=== PATIENT | male | born 1940 | race Caucasian/White ===

== ENCOUNTER 2020-01-22 08:27 | Outpatient (CLI) | payer MEDICARE, BC, SELFPAY ==
--- NOTE | ~2020-01-22 | MR_ITS ---
EXAMINATION: MR lumbar spine wo con EXAM DATE: 01/22/2020 09:45 INDICATION: Bilateral leg numbness, right side worse. TECHNIQUE: Multi-sequential, multiplanar MR images of the lumbar spine were obtained without contrast . Sagittal T1, T2, T2 fat saturation images. Axial T2 weighted images. There is no prior study for comparison. FINDINGS: There is 5 mm anterolisthesis L4 on L5 without spondylolysis. Mild to moderate loss of this disc height, moderate loss at L5-S1 and mild at other lumbar levels. The vertebral bodies are otherw ise aligned. The conus medullaris terminates at the L1/2 level and has normal signal intensity and mo rphology. There are no suspicious marrow signal abnormalities. Paraspinal soft tissue is unremarkabl e. Level by level evaluation: T12-L1: Disc does not extend beyond the endplate margin. Facet arthropathy: Mild. Neural foraminal stenosis: No stenosis. Central canal stenosis: No stenosis. L1-L2: Disc does not extend beyond the endplate margin. Facet arthropathy: Mild to moderate. Neural foraminal stenosis: No stenosis. Central canal stenosis: No stenosis. L2-L3: There is a mild diffuse disc bulge. Facet arthropathy: Mild to moderate. Neural foraminal stenosis: Mild left. Central canal stenosis: Mild. L3-L4: There is a mild to moderate diffuse disc bulge. Facet arthropathy: Mild to moderate. Neural foraminal stenosis: Mild left. Central canal stenosis: Mild. L4-L5: There is a large diffuse disc bulge. Facet arthropathy: Severe . Ligamentum flavum enlargement. Neural foraminal stenosis: Moderate right, mild to moderate left. Central canal stenosis: Severe. L5-S1: There is a moderate diffuse disc bulge. Facet arthropathy: Mild to moderate. Neural foraminal stenosis: Moderate bilateral. Central canal stenosis: Mild to moderate. IMPRESSION: 1. L4-5 grade 1 anterolisthesis, severe central canal stenosis. Reviewed, dictated and finalized at location B.
== END 2020-01-22 08:28 | disposition home or self-care (01) ==
LOC: ANHIMG 08:45
PROVIDERS: PCP Internal Medicine; Visit Provider Internal Medicine
DX: M48.061 Spinal stenosis, lumbar region without neurogenic claudication (principal); M43.16 Spondylolisthesis, lumbar region
CPT/HCPCS: 72148

== ENCOUNTER 2020-07-24 08:03 | Emergency (ER) | payer MEDICARE, BC, SELFPAY ==
--- NOTE | ~2020-07-24 | XR_ITS ---
XR shoulder RT min 2V DATE: 07/24/2020 09:03 INDICATION: Anterior dislocation TECHNIQUE: Neer and AP views COMPARISON: 07/24/2020 right shoulder FINDINGS: There is reduction of the earlier reported anterior dislocation of the right glenohumeral j oint. No fracture is evident. IMPRESSION: Reduction of anterior glenohumeral joint dislocation Reviewed, dictated and finalized at location A. IERS SUPERVISOR
--- NOTE | ~2020-07-24 | XR_ITS ---
EXAMINATION: XR shoulder RT min 2V DATE: 07/24/2020 08:32 INDICATION: Right shoulder pain post fall TECHNIQUE: AP and transscapular Y views of the right shoulder were obtained. COMPARISON: None FINDINGS: Anterior right glenohumeral dislocation. No evident fracture. Mild acromioclavicular osteoarthritis. Prominent heterotopic ossification along the coracoclavicular ligament suggesting sequela of prior hi gher grade acromioclavicular joint separation with coracoclavicular ligament sprain. Cortical irregul arity and subtle lucent tract at the lateral right clavicle suggesting possible surgery potential for ligament reconstruction. Correlate with clinical history. Visualized portions of the lungs are clear . IMPRESSION: 1. Right glenohumeral anterior dislocation. No evident acute fracture. 2. Likely post traumatic/postoperative changes at the right clavicle and coracoid process suggesting prior acromioclavicular joint separation with possible coracoclavicular ligament reconstruction. Balaji elate with clinical/surgical history. Reviewed, dictated and finalized at location A. ICAL LAB ASSISTANT IMPRESSION: 1. Right glenohumeral anterior dislocation. No evident acute fracture. 2. Likely post traumatic/postoperative changes at the right clavicle and coraco id process suggesting prior acromioclavicular joint separation with possible co racoclavicular ligament reconstruction. Correlate with clinical/surgical histor y.
[2020-07-24 08:06] VITALS: BP 163/72; PULSE 64; RESP 16; TEMP 36.8; O2SAT 100
--- NOTE | 2020-07-24 08:12 | ED.UPPEXIN ---
HPI - Extremity Injury (Upper) General Chief Complaint: Extremity Injury, Upper Stated Complaint: RT ARM INJURY Time Seen by Provider: 07/24/20 08:12 Source: patient and family Mode of arrival: ambulatory Limitations: no limitations History of Present Illness HPI narrative: Patient is an 79-year-old male who presents for evaluation of right arm pain following a ground-level fall. Patient states that he entered a gym this morning in order to do some speed walking, his shoes were a bit wet, causing him to slip on the gym floor. Patient states that he landed on his right arm, causing pain at the right shoulder and right upper arm. Patient denies any numbness or weakness in the arm. He denies any difficulty with theatrical agent strength. He denies head trauma, loss of consciousness, neck pain, chest pain, palpitations, shortness of breath or any prodromal symptoms prior to the fall. He denies hip pain or back pain. He has been ambulatory. Patient is right-hand dominant. Related Data Allergies Allergy/AdvReac Type Severity Reaction Status Date / Time No Known Allergies Allergy Unknown Verified 07/24/20 08:11 Review of Systems Review of Systems: Narrative: CONSTITUTIONAL: Denies fever CARDIOVASCULAR: Denies chest pain RESPIRATORY: Denies cough or dyspnea. GASTROINTESTINAL: Denies abdominal pain SKIN: Denies rash MUSCULOSKELETAL: Denies back pain, reports right upper arm and shoulder pain NEUROLOGIC: Denies headache PMFSH Past Medical History Medical History (Updated 07/24/20 @ 09:05 by Keshia Andino MD) Cataract Constipation Osteoarthritis Shoulder dislocation Surgical History Surgical History H/O: vasectomy Social History Social History (Updated 07/24/20 @ 08:19 by Keshia Andino MD) Smoking status: Never smoker Alcohol intake: never Substance use: never Living arrangements: with family Gender identity (if verbalized by the patient): Male Exam Narrative: Exam Narrative: GENERAL: Awake, alert, conversant HEAD: Normocephalic, atraumatic. EYES: PERRLA and EOMI. ENT: Nares clear, no rhinorrhea or epistaxis. Mucous membranes moist. NECK: Supple. No cervical midline tenderness. CHEST: No respiratory distress, breathing even and non labored HEART: Regular rate, sinus rhythm ABDOMEN:Non distended, non tender. Pelvis is stable to anterior and lateral compression. EXTREMITIES: Decreased range of motion at the right shoulder due to pain. Intact sensation over the deltoid. There is squaring off of the shoulder. Full range of motion at the right elbow and right wrist without limitation or pain. No deformity noted overlying the upper extremity. Radial pulse 2+. Intact sensation median, ulnar, radial nerve distribution. SKIN: Warm, dry, no rash. NEURO:No focal deficits. Alert and oriented x3 Course Vital Signs Vital signs: Vital Signs Temperature 36.8 C 07/24/20 08:06 Pulse Rate 64 07/24/20 08:06 Respiratory Rate 16 07/24/20 08:06 Blood Pressure 163/72 H 07/24/20 08:06 Pulse Oximetry 100 07/24/20 08:06 Temperature 36.8 C 07/24/20 08:06 Pulse Rate 64 07/24/20 08:06 Respiratory Rate 16 07/24/20 08:06 Blood Pressure 163/72 H 07/24/20 08:06 Pulse Oximetry 100 07/24/20 08:06 Procedures Joint Aspiration/Injection Joint Asp./Inject. 1: Joint Aspiration Date: 07/24/20 Joint Aspiration Time: 09:00 Time Out Performed: Yes Side of body: right Joint Aspirated: shoulder Ultrasound Guidance: No Skin Prep: Chlorhexidine Local Anesthetic: lidocaine 1% and with epi Amount of anesthesia used (mL): 10 Needle Size Used: 18G Fluid Obtained: none Patient Tolerated Procedure: well and no complications Complications: none Additional Comments: This was done for anesthesia for a closed shoulder reduction Orthopedic Joint Reduction Joint #1:
[2020-07-24] MEDS: oxyCODONE/ACETAMINOPHEN (*CRX) 5-325 MG TABLET 1 TABLET PO (08:24)
[2020-07-24] MEDS: ONDANSETRON HCL ODT 4 MG TABLET PO (08:24)
[2020-07-24] MEDS: fentaNYL CITRATE INJ (*CRX) 100 MCG/2 ML VIAL (08:51)
== END 2020-07-24 09:52 | disposition home or self-care (01) ==
PROVIDERS: Emergency Provider Emergency Medicine; PCP Internal Medicine
DX: S43.004A Unspecified dislocation of right shoulder joint, initial encounter (principal); W01.0XXA Fall on same level from slipping, tripping and stumbling without subsequent striking against object, initial encounter
CPT/HCPCS: 23655; 73030; 96374; 99285; A4565; A9270; J3010

== ENCOUNTER 2023-03-30 08:53 | Emergency (ER) | payer MEDICARE, BC, SELFPAY ==
--- NOTE | 2023-03-30 08:59 | ED.DIZZY ---
HPI - Dizziness General Chief Complaint: Dizziness Stated Complaint: Dizziness,Numbness Lt Arm and Face Time Seen by Provider: 03/30/23 08:58 Source: patient and family Mode of arrival: ambulatory Limitations: no limitations History of Present Illness HPI Narrative: Calixto is an 82-year-old male patient presenting to the clinic today with complaints of intermittent dizziness x3 weeks. States he feels as though he is unsteady on his feet and he may fall down. He reports that this morning around 3:00 a.m. this morning that he developed left arm numbness and tingling as well as left-sided facial numbness and tingling. He reports that this only lasted for a few minutes. He denies any headache, visual changes, chest pain, or shortness of breath. Current symptoms have resolved. Related Data Home Medications Medication Instructions Recorded Confirmed No Home Medications 03/30/23 03/30/23 Allergies Allergy/AdvReac Type Severity Reaction Status Date / Time No Known Allergies Allergy Unknown Verified 03/30/23 10:04 Review of Systems Review of Systems: Pertinent positives per HPI. Patient denies any fever, chills, rash, headache, visual changes, cough, runny nose, sore throat, shortness of breath, chest pain, palpitations, nausea, vomiting, diarrhea, constipation, abdominal pain, or any urinary issues. [facility] Past Medical History Medical History BMI 29.0-29.9,adult Cataract Constipation Dislocation of right shoulder joint Osteoarthritis Shoulder dislocation Surgical History Surgical History H/O elbow surgery 2009 Dr Anen H/O: vasectomy History of back surgery pt notes previous surgery for spinal stenosis History of left knee replacement 2011, Dr. Flor History of right hip replacement 2014, Dr. Anne History of shoulder surgery right AC separation as a youth Social History Social History Smoking status: Never smoker Alcohol intake: never Substance use: never Living arrangements: with family Gender identity (if verbalized by the patient): Male Comments At the time of my signature, I reviewed and agree with the nursing past medical, surgical, social, and family history. There is no relevant family history pertinent to the patient complaint. Exam Narrative: General: Well-developed, well nourished, in no apparent distress Head: Normocephalic, atraumatic Eyes: Pupils equally round and reactive to light bilaterally, EOM intact, sclera and conjunctive clear, no discharge, lids normal Ears: TMs intact and clear, ear canals clear, no drainage, grossly hearing normal. Nose: Nares patent, no discharge, no inflammation, no sinus tenderness. Mouth: Oropharynx without lesions or masses, good dentition, MMM. Tongue midline, even rise and fall of uvula Neck: Supple, trachea midline, no enlargement of anterior or posterior cervical nodes, no thyroid masses or goiter palpable. Cardio: Regular rate and rhythm, s1 and s2 normal, no murmur appreciated. Resp: Clear to auscultation bilaterally anteriorly and posteriorly, no rhonchi, rales, wheezing or rubs Musculoskeletal: No deformity, non-tender to palpation, grossly normal range of motion, muscle strength strong and equal, peripheral pulse strong, no edema, no cyanosis, normal gait and station Neuro: Alert and oriented x4 with normal speech, no focal deficits, cranial nerves I through XII intact, muscle strength 5 out of 5, sensation intact bilaterally, negative Romberg test Course Course Emergency Course: Portions of this record may have been created with voice recognition software. Level of Care: Express Care Visit Vital Signs Vital signs: Vital Signs Temperature 36.3 C L 03/30/23 09:15 Pulse Rate 64 03/30/23 09:15 Respiratory Rate 18 03/30/23 09:15 B
--- NOTE | 2023-03-30 09:14 | ECG_ITS ---
Measurements Intervals [place] Rate: 66 P: 45 [place]: 190 QRS: 21 QRSD: 96 T: 43 QT: 396 QTc: 417 Interpretive Statements SINUS RHYTHM WITH SINUS ARRHYTHMIA NORMAL ECG NO PREVIOUS ECG AVAILABLE FOR COMPARISON Electronically Signed On 03-30-2023 9:33:40 CDT by Carter Martines D.O.
[2023-03-30 09:15] VITALS: BP 118/65; PULSE 64; RESP 18; TEMP 36.3; O2SAT 100
[2023-03-30 09:20] LABS: Glucose Point of Care 86 mg/dl (65-105)
== END 2023-03-30 09:30 | disposition short-term general hospital (02) ==
PROVIDERS: Emergency Provider Nurse Practitioner Family; PCP Internal Medicine
DX: R42 Dizziness and giddiness (principal); R20.0 Anesthesia of skin; R20.2 Paresthesia of skin; M19.90 Unspecified osteoarthritis, unspecified site; Z98.52 Vasectomy status; Z96.652 Presence of left artificial knee joint; Z96.641 Presence of right artificial hip joint
CPT/HCPCS: 82948; 93005; 99213; G0463

== ENCOUNTER 2023-03-30 10:03 | Inpatient (IN) | payer MEDICARE, BC, SELFPAY ==
[2023-03-30] VITALS (23 sets, daily range): BP systolic 110–164; BP diastolic 61–78; PULSE 58–82; RESP 10–20; TEMP 36.7–36.9; O2SAT 95–100; BMI 28.7
--- NOTE | ~2023-03-30 | CT_ITS ---
EXAMINATION: CTA brain carotid DATE: 03/30/2023 14:13 INDICATION: Transient ischemic attack. TECHNIQUE: Computed tomographic angiography (CTA) of the head was performed without and with 100 mL O mnipaque-350 intravenous contrast. CTA of the neck was performed with intravenous contrast. Automated exposure control and iterative reconstruction technique were employed. The dose-length product was 1 719.85 mGy-cm. Maximum intensity projection and volume rendered 3D-reconstructions were created by curtis juarez technologist on a separate workstation. COMPARISON: None. FINDINGS: HEAD CTA: There is no intracranial hemorrhage, acute infarction, or abnormal intracranial mass lesion . The ventricles are normal in size. There are likely changes of ocular lens replacement surgeries. T here is mild mucosal thickening in the paranasal sinuses. There are old fracture deformities of the n gwen bones. The mastoid air cells are normal. Left vertebral artery is dominant. There is total occlu sheila of distal right vertebral artery. There is no significant stenosis of basilar artery or the post erior cerebral arteries. Right P1 posterior cerebral artery segment is absent, a normal variant. The posterior communicating arteries are normal. There is no significant stenosis of the intracranial int ernal carotid arteries or anterior or middle cerebral arteries. Right A1 anterior cerebral artery seg ment is small or absent, a normal variant. Anterior communicating artery is normal. There is no aneur ysm. NECK CTA: There are no pathologically enlarged lymph nodes. There is a 2.6 cm nodule of left thyroid lobe extending into the mediastinum. There is plaque in the proximal internal carotid arteries. Ther e is 0% stenosis of the proximal right internal carotid artery relative to normal distal artery lumen diameter (NASCET criteria). There is 0% stenosis of the proximal left internal carotid artery relati ve to normal distal artery lumen diameter. There is severe cervical and thoracic spondylosis. IMPRESSION: 1. Normal brain parenchyma. 2. 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 3. 0% stenosis of the proximal internal carotid arteries relative to normal distal artery lumen diame ters (NASCET criteria). 4. Thyroid nodule. Consider thyroid ultrasound for risk stratification if clinically indicated given the patient's age. Reviewed, dictated and finalized at location A. IMPRESSION: 1. Normal brain parenchyma. 2. 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 3. 0% stenosis of the proximal internal carotid arteries relative to normal dis maritza artery lumen diameters (NASCET criteria). 4. Thyroid nodule. Consider thyroid ultrasound for risk stratification if clini piotr indicated given the patient's age.
--- NOTE | ~2023-03-30 | XR_ITS ---
EXAMINATION: XR chest 2V DATE: 03/30/2023 11:13 INDICATION: Dizziness and left arm tingling TECHNIQUE: PA and lateral views of the chest are obtained. COMPARISON: None available FINDINGS: The lungs are free of acute opacities. No pleural effusion or pneumothorax. The cardiomedia stinal silhouette is normal. There are bridging osteophytes at multiple levels in the spine, consiste nt with diffuse idiopathic skeletal hyperostosis (DISH). There is advanced osteoarthritis of the shou lder. Bilateral gynecomastia is noted. IMPRESSION: 1. No acute cardiopulmonary abnormality. Reviewed, dictated and finalized at location L.
--- NOTE | ~2023-03-30 | US_ITS ---
EXAMINATION: US thyroid DATE: 03/31/2023 18:54 INDICATION: Left lobe thyroid nodule on CTA. TECHNIQUE: Multiple ultrasound images of the thyroid were obtained. COMPARISON: CTA brain carotid 03/30/2023. FINDINGS: The right thyroid lobe measures 3.3 x 1.5 x 1.2 cm. The left thyroid lobe measures 4.3 x 2.1 x 2.2 c m. The isthmus measures 0.4 cm. There is normal echotexture and echogenicity throughout the thyroid gland. 2.3 cm solid, isoechoic, wider than tall, smoothly marginated left thyroid nodule with no inte rnal echogenicity (TI-RADS grade 3). Globally increased vascular flow is present in the thyroid paren chyma. IMPRESSION: 2.3 cm mildly suspicious left thyroid nodule (TR 3). Consider follow-up thyroid ultrasound in 1 year, depending on the patient's comorbidities and wishes. Reviewed, dictated and finalized at location K.
--- NOTE | ~2023-03-30 | MR_ITS ---
EXAMINATION: MR lumbar spine wo con DATE: 04/01/2023 15:32 INDICATION: Lumbar spinal stenosis. Areflexia. TECHNIQUE: Magnetic resonance imaging (MRI) of the lumbar spine was performed without intravenous con trast. COMPARISON: Lumbar spine MRI 01/22/2020 FINDINGS: There is 5 degrees levocurvature of lumbar spine. There is 5 mm anterolisthesis of L4 on L5 and 3 mm retrolisthesis of L5 on S1. There is mild chronic anterior wedging of T12 vertebral body. T here is mildly decreased disc height at L2-L3, L3-L4, and L4-L5 and moderately decreased disc height at L5-S1. The distal spinal cord signal intensity is normal. The conus medullaris is at L2. The follo wing disc levels are specifically discussed: L1-L2: The disc does not extend beyond the endplate margin. There is moderate bilateral facet joint o steoarthritis. There is no neural foraminal stenosis. There is no central canal stenosis. L2-L3: The disc is bulging. There is severe bilateral facet joint osteoarthritis. There is mild bilat eral neural foraminal stenosis. There is mild central canal stenosis. L3-L4: The disc is bulging. There is mild right and moderate left facet joint osteoarthritis. There i s mild bilateral neural foraminal stenosis. There is mild central canal stenosis. L4-L5: The disc is bulging and has an annular fissure. There is severe bilateral facet joint osteoart hritis. There is mild bilateral neural foraminal stenosis. There is mild central canal stenosis with posterior decompression. L5-S1: The disc is bulging and has an annular fissure. There is severe bilateral facet joint osteoart hritis. There is moderate bilateral neural foraminal stenosis. There is mild central canal stenosis. IMPRESSION: 1. Moderate lumbar spondylosis with interval improvement at L4-L5 status post surgical decompression. Reviewed, dictated and finalized at location E. IMPRESSION: 1. Moderate lumbar spondylosis with interval improvement at L4-L5 status post s urgical decompression.
--- NOTE | ~2023-03-30 | MR_ITS ---
EXAMINATION: MR cervical spine wo con DATE: 04/01/2023 15:32 INDICATION: Upper extremity paresthesias. TECHNIQUE: Magnetic resonance imaging (MRI) of the cervical spine was performed without intravenous c ontrast. Sequences included sagittal T2-weighted FSE, sagittal T2-weighted FS FSE, sagittal T1-weight ed FSE, axial MERGE, and axial T2-weighted FSE. COMPARISON: None FINDINGS: There is 3 degrees levocurvature of cervical spine. There is 2 mm anterolisthesis of C4 on C5. Vertebral body heights are normal. There is mildly decreased disc height at C3-C4 and C4-C5, omar rely decreased disc height at C5-C6, moderately decreased disc height at C6-C7, and mildly decreased disc height at C7-T1. The spinal cord signal intensity is normal. The following disc levels are speci fically discussed: C2-C3: There is a central protrusion. There is mild bilateral uncovertebral joint osteoarthritis. The re is mild right and severe left facet joint osteoarthritis. There is mild left neural foraminal sten osis. There is no central canal stenosis. C3-C4: The disc is bulging. There is severe right and moderate left uncovertebral joint osteoarthriti s. There is mild right and severe left facet joint osteoarthritis. There is moderate right and mild l eft neural foraminal stenosis. There is mild central canal stenosis. C4-C5: The disc is bulging. There is severe right and moderate left uncovertebral joint osteoarthriti s. There is severe right and mild left facet joint osteoarthritis. There is severe right and mild lef t neural foraminal stenosis. There is mild central canal stenosis. C5-C6: The disc is bulging. There is severe bilateral uncovertebral joint osteoarthritis. There is mi ld bilateral facet joint osteoarthritis. There is severe right and moderate left neural foraminal terry nosis. There is mild central canal stenosis with ventral indentation of the spinal cord. C6-C7: The disc is bulging. There is severe bilateral uncovertebral joint osteoarthritis. There is mi ld bilateral facet joint osteoarthritis. There is moderate bilateral neural foraminal stenosis. There is mild central canal stenosis. C7-T1: There is a central extrusion. There is mild bilateral uncovertebral joint osteoarthritis. Ther e is severe bilateral facet joint osteoarthritis. There is mild bilateral neural foraminal stenosis. There is mild central canal stenosis. IMPRESSION: 1. Severe cervical spondylosis. Reviewed, dictated and finalized at location E.
--- NOTE | ~2023-03-30 | CT_ITS ---
EXAMINATION: CTA brain carotid DATE: 03/31/2023 20:03 INDICATION: CODE STROKE TECHNIQUE: Computed tomographic angiography (CTA) of the head and neck was performed without and with 100 mL Omnipaque-350 intravenous contrast. Automated exposure control and iterative reconstruction t echnique were employed. . The dose-length product was 1189.14 mGy-cm. Maximum intensity projection a nd volume rendered 3D-reconstructions were created by the technologist on a separate workstation. COMPARISON: 03/30/2023; CT brain 03/31/2023. FINDINGS: CT BRAIN: No acute large vessel infarct, intracranial hemorrhage, mass, or hydrocephalus. CTA HEAD: No large vessel occlusion, aneurysm, high flow vascular malformation, nidus or extravasation. Unchang ed short segment occlusion of the right V4 segment. Persistent origin of the right posterior ce rebral artery. Hypoplastic/absent right A1 segment. Carotid siphon calcifications without significant stenosis. Symmetric parenchymal enhancement. Patent cerebral veins. CTA NECK: Aortic arch and proximal great vessels: Bovine arch. Right common carotid, carotid bifurcation, and internal carotid artery: Calcified plaque at the bifur cation.There is 0% stenosis of the proximal right internal carotid artery relative to normal distal a rtery lumen diameter (NASCET criteria). Left common carotid, carotid bifurcation, and internal carotid artery: Calcified plaque at the bifurc ation.There is 0% stenosis of the proximal left internal carotid artery relative to normal distal art augusta lumen diameter (NASCET criteria). Vertebral arteries: No significant plaque or stenosis. Left vertebral artery is dominant. Other findings: None. IMPRESSION: No new large vessel occlusion. 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 Otherwise, severe carotid or vertebral stenosis Reviewed, dictated and finalized at location K.
--- NOTE | ~2023-03-30 | CT_ITS ---
EXAMINATION: CT brain wo con DATE: 03/31/2023 19:56 INDICATION: Stroke symptoms . TECHNIQUE: Computed tomography (CT) of the head was performed without intravenous contrast. The mA wa s adjusted according to patient size. Iterative reconstruction technique was employed. The dose-lengt h product was 605.33 mGy-cm. COMPARISON: CTA brain carotid 03/30/2023; MR brain 03/31/2023. FINDINGS: No acute intracranial hemorrhage or extra-axial fluid collection. No hydrocephalus, mass, or herniation. No acute ischemic infarct. Unremarkable dural venous sinus attenuation. No acute osseous abnormality. Mild mucosal thickening in the ethmoid sinuses, the remaining aerated spaces are clear. Mild atrophy and chronic white matter change. Atherosclerotic intracranial calcification. Bilateral l ens replacements. IMPRESSION: No acute intracranial process. Results reported telephonically to Quoc Trinidad RN by Dr. Parsons at 8:01 PM on 03/31/2023. Reviewed, dictated and finalized at location K.
--- NOTE | ~2023-03-30 | MR_ITS ---
EXAMINATION: MR brain/brain stem wo/w con DATE: 03/31/2023 07:06 INDICATION: Transient ischemic attack. Left hemiparesis. Dizziness. TECHNIQUE: Magnetic resonance imaging (MRI) of the brain and brainstem was performed without and with 17 mL MultiHance intravenous contrast. COMPARISON: Head CT 03/30/2023 FINDINGS: There are scattered areas of nonspecific increased T2-weighted signal intensity in the cere bral white matter, which is within normal limits for the patient's age. There is no intracranial hemo rrhage, acute infarction, or abnormal intracranial mass lesion. The ventricles are normal in size. Th ere is mild mucosal thickening in the ethmoid sinuses. There are likely changes of ocular lens replac ement surgeries. The mastoid air cells are normal. IMPRESSION: 1. Normal brain. Reviewed, dictated and finalized at location A. IMPRESSION: 1. Normal brain.
--- NOTE | 2023-03-30 10:27 | ECG_ITS ---
Measurements Intervals [place] Rate: 58 P: 45 [place]: 190 QRS: 28 QRSD: 89 T: 42 QT: 405 QTc: 400 Interpretive Statements SINUS BRADYCARDIA WITH SINUS ARRHYTHMIA BORDERLINE ECG COMPARED TO ECG 03/30/2023 09:16:25 SINUS BRADYCARDIA NOW PRESENT Electronically Signed On 03-30-2023 10:50:55 CDT by Carter Martines D.O.
[2023-03-30 10:52] LABS: Basophils Absolute Auto 0.1 K/mm3 (0.0-0.1); Basophils Percent Auto 0.9 % (0.2-1.2); Eosinophils Absolute Auto 0.2 K/mm3 (0-0.3); Eosinophils Percent Auto 2.2 % (0-4.4); Hemoglobin 13.4 g/dL (14.0-18.0); Immature Granulocyte Absolute 0.01 K/mm3 (0.00-0.031); Immature Granulocyte Percent A 0.1 % (0-0.5); Lymphocytes Absolute Auto 2.34 K/mm3 (0.9-3.2); Lymphocytes Percent Auto 28.6 % (18.3-44.2); Mean Corpuscular HGB Conc 32.7 g/dl (32-36); Mean Corpuscular Hemoglobin 32.5 pg (26-34); Mean Corpuscular Volume 99.5 fl (80-100); Monocytes Absolute Auto 0.7 K/mm3 (0.1-0.6); Neutrophils Absolute Auto 4.9 K/mm3 (1.3-6.7); Neutrophils Percent Auto 59.2 % (45.5-73.1); Nucleated Red Blood Cells Perc 0.4 % (0.0-0.2); Platelet Count Result 241 k/mm3 (150-375); Red Blood Count 4.12 M/mm3 (4.6-6.20); White Blood Count 8.2 K/mm3 (4.5-10.0)
[2023-03-30 10:59] LABS: Alanine Aminotransferase 19 U/L (6-50); Albumin Level 4.2 g/dL (3.5-5.1); Alkaline Phosphatase 62 U/L (38-126); Anion Gap 7 mmol/L (8-16); Aspartate Amino Transferase 30 U/L (17-59); Bilirubin,Total 0.6 mg/dL (0.2-1.3); Blood Urea Nitrogen 18 mg/dL (9-20); Calcium 8.7 mg/dL (8.4-10.2); Carbon Dioxide 31 mmol/L (22-30); Chloride 102 mmol/L (98-107); Estimated CRCL calculation 59 ml/min; Estimated Glomerular Filt Rate > 60; Glucose 78 mg/dL (65-110); Sodium 140 mmol/L (137-145)
[2023-03-30 11:14] LABS: Add Urine Microscopic? NO; Appearance Urine Clear (Clear); Bilirubin Urine Negative (Negative); Blood Urine Negative (Negative); Color Urine Yellow (Yellow); Glucose Urine UA Negative (Negative); Ketones Urine Negative (Negative); Leukocyte Esterase Ur Negative LEU/UL (Negative); Nitrate Urine Negative (Negative); Protein Urine Negative (Negative); Specific Grav Ur 1.007 (1.001-1.035); Urobilinogen Urine 0.2 mg/dL (<2.0); pH Urine 6.5 (5.0-9.0)
--- NOTE | 2023-03-30 13:40 | ED.DIZZY ---
HPI - Dizziness General Chief Complaint: Dizziness Stated Complaint: dizziness x 3 weeks - left arm weakness Time Seen by Provider: 03/30/23 11:58 History of Present Illness HPI Narrative: 82-year-old male presented the ED for evaluation of intermittent dizziness over the course of the last week but acute onset of some left facial and left arm numbness this morning. Patient reports he had just a few minutes of left arm and left facial numbness this morning. Patient denies any weakness denies any speech difficulty denies any facial droop. Patient reports his symptoms were short lasting by the time the patient went to tell his about the symptoms he states that she saw no facial droop and noticed no speech changes. Patient has no prior history of stroke. Patient reports he is very active and walks 1 to 2 miles a day. Related Data Home Medications Medication Instructions Recorded Confirmed No Home Medications 03/30/23 03/30/23 Allergies Allergy/AdvReac Type Severity Reaction Status Date / Time No Known Allergies Allergy Unknown Verified 03/30/23 18:12 Review of Systems Review of Systems: All systems reviewed & are unremarkable except as noted in HPI and below PMFSH Past Medical History Medical History Osteoarthritis Squamous cell carcinoma of forehead Surgical History Surgical History History of back surgery For spinal stenosis. History of elbow surgery (2009) Dr. Anne History of left knee replacement (2010) Dr. Flor History of right hip replacement (2014) Dr. Anne History of shoulder surgery right AC separation as a youth History of squamous cell carcinoma excision Forehead History of vasectomy Status post functional endoscopic sinus surgery Family History Family History Sibling Malignant neoplasm of prostate Sibling Diabetes mellitus Social History Social History Social History: Surrogate medical decision maker: Glenn Ramos, kyle. Code status: Full code. Smoking status: Never smoker Alcohol intake: never Substance use: never Substance use type: does not use Lack of Transportation: No Lack of Food: Never True Current Housing: I Have Housing Concerned About Future Housing: No Difficulty Paying Gas/Electric Bills: No Difficulty Paying for Meds: No Currently Unemployed: No Education: High School Diploma/GED Difficulty w/ Childcare or Family Care: No Living arrangements: with family Additional living arrangements comments: Lives with spouse in [place]. Enjoys playing piano at local nursing homes. Walks 1 to 2 miles most days of the week. Additional occupation/education comments: Retired from [employer]. Spiritual care concerns: No Exam Narrative: APPEARANCE: Well appearing, no pain, no distress, well-nourished. HEAD: normocephalic, atraumatic. EYES: PERRLA/EOMI, conjunctivae clear. NOSE: Normal no drainage EARS:TMS clear with good light reflex. THROAT: Pharynx clear, no exudate. NECK: Supple. No adenopathy, no masses. RESPIRATORY: Airway patent, respirations nonlabored. Clear to auscultation bilaterally, no rales, rhonchi, wheezing. CARDIOVASCULAR: Regular rate and rhythm without murmurs rubs or gallops. ABDOMINAL: Soft, nontender, nondistended, normal bowel sounds MUSCULOSKELETAL: Moves all extremities. Strength/ROM intact, No edema, No calf tenderness. NEURO: Alert. Cranial nerves II through XII intact. SKIN: Warm, dry. Normal Color Course Course Emergency Course: 82-year-old male presented the ED for evaluation of left arm and left facial numbness that was short lasting. 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 Discussed the kobe
[2023-03-30 13:43] LABS: INR 0.9
[2023-03-30 13:45] LABS: Partial Thromboplastin Time 28.6 SECONDS (22.3-36.8)
--- NOTE | 2023-03-30 15:37 | PC.NURSE ---
Ambulatory to restroom with steady gait.
[2023-03-30] MEDS: ASPIRIN 81 MG CHEWABLE TABLET 324 MG PO (15:56)
--- NOTE | 2023-03-30 17:03 | PM.IMHP ---
H&P: HPI History of Present Illness Date/Time: 03/30/23 16:25 Chief Complaint: Dizziness and numbness in the left face and arm. Narrative: This is a very pleasant and remarkably healthy 82-year-old male who presented to the emergency department via private vehicle from home for evaluation of dizziness and numbness in the left face and arm. The patient provides the following history. He typically gets up at about 03:00 and he goes to the local [facility] where he walks 1 to 2 miles most days of the week. Upon waking he noticed that the left side of his lower face, left arm, and left 4th and 5th fingers were numb. The tingling in the arm resolved within minutes and the left facial numbness resolve shortly thereafter. He felt good enough to go to the but when he was up walking he reports that it felt as though the room was spinning so he cut his walk short after about 20 minutes and went home. Later in the morning he felt good enough to go to [facility] to meet up with his buddies. There he told a story of the symptoms he had this morning and he was encouraged to come in for evaluation. He has no symptoms at this time and has not had recurrence of his symptoms since this morning. He denies headache, visual changes, facial droop, difficulties speaking and swallowing, and focal weakness. He has never had similar symptoms. No chest pain, palpitations, or sensations of racing heart. Blood pressure has been as high as 164/74 in the emergency department which he states is unusual for him. He is in a sinus bradycardia. 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 ED physician spoke with the stroke team at [facility] and their interventional team who did not feel that this was something they would intervene upon. He is being admitted in this setting for close monitoring, MRI, and neurology consultation. At the time my evaluation he is resting comfortably and he has no complaints. Review of Systems Review of Systems: Twelve systems were reviewed and are negative except for as per HPI. ON LICENSE OF [facility] Past Medical History Medical History Osteoarthritis Squamous cell carcinoma of forehead Surgical History Surgical History History of back surgery For spinal stenosis. History of elbow surgery (2009) Dr. Anne History of left knee replacement (2010) Dr. Flor History of right hip replacement (2014) Dr. Anne History of shoulder surgery right AC separation as a youth History of squamous cell carcinoma excision Forehead History of vasectomy Status post functional endoscopic sinus surgery Family History Family History Sibling Malignant neoplasm of prostate Sibling Diabetes mellitus Social History Social History Social History: Surrogate medical decision maker: Glenn Ramos, kyle. Code status: Full code. Smoking status: Never smoker Alcohol intake: never Substance use: never Substance use type: does not use Lack of Transportation: No Lack of Food: Never True Current Housing: I Have Housing Concerned About Future Housing: No Difficulty Paying Gas/Electric Bills: No Difficulty Paying for Meds: No Currently Unemployed: No Education: High School Diploma/GED Difficulty w/ Childcare or Family Care: No Living arrangements: with family Additional living arrangements comments: Lives with spouse in [place]. Enjoys playing piano at local nursing homes. Walks 1 to 2 miles most days of the week. Additional occupation/education comments: Retired from [employer]. Spiritual care concerns: No Meds Home Medications and Allergies Home Medications Medic
--- NOTE | 2023-03-30 18:00 | ADMGEN ---
This patient, Calixto Ramos, was admitted to Medical Room 251-01. Patient/family oriented to hospital policies and general routines including ID bracelet, bed and alarms, visiting hours, pain management, procedures, bathroom and other care routines, personal items, smoking policy, room service/diet, and visiting hours. Information on how to activate the Rapid Response Team has been discussed. Patient/Family are encouraged to report perceived risks to care and to ask questions if they do not understand what they are told or what they should do.
[2023-03-31] VITALS (11 sets, daily range): BP systolic 107–133; BP diastolic 58–64; PULSE 56–71; RESP 16–18; TEMP 36.4–36.6; O2SAT 97–98
--- NOTE | 2023-03-31 | ECHO_ITS ---
Patient Info Name: Calixto Ramos Age: 82 years : 1940 Gender: Male Ht: 68 in Wt: 188 lbs BSA: 2.04 m2 HR: 61 bpm BP: 114 / 60 mmHg Heart Rhythm: Sinus Rhythm Technical Quality: Good Exam Date: 03/31/2023 12:59 PM Exam Location: [facility] Pulmonary Exam Room: [facility] Patient Status: Inpatient Admit Date: 03/30/2023 Staff Ordering Physician: Sara Ramirez DO [employer] Instructor: Hanna Reynaga RDCS Attending Provider: Israel Jules MD Referring Physician: James CARNEY; Exam Type: CA echo dop bubble study w con Study Info Indications - SOB Complete two-dimentional, color flow and Doppler transthoracic echocardiogram is performed with agitated saline and with contrast to opacify the left ventricle and to improve the delineation of the left ventricle endocardial borders. Contrast/Agitated Saline Contrast/Ag. Saline: Definity Amount: 2.00 ml Administered By: Hanna Reynaga [facility] Existing IV Access: Yes IV Access Condition: patent with no signs of infiltration Summary 1. Technically difficult study with limited views. Definity echo contrast administered. 2. Left ventricular chamber dimension is normal. 3. Left ventricular systolic function is normal, estimated at 60-65%. 4. There is mildly increased left ventricular wall thickness. 5. The left ventricular diastolic function is grade I diastolic dysfunction. 6. Right atrial chamber dimension is mildly enlarged. 7. There is no aortic valve stenosis. 8. There is no aortic valve regurgitation. 9. There is no mitral valve regurgitation. 10. There is mild tricuspid valve regurgitation. 11. Mild pulmonary hypertension, estimated pulmonary arterial systolic pressure is 37 mmHg. 12. No evidence for [id number] shunt at the interatrial level with injection of agitated saline with and without Valsalva. Recommendations * Consider JEANNIE if clinically indicated. Left Ventricle Left ventricular chamber dimension is normal. Left ventricular systolic function is normal, estimated at 60-65%. There is mildly increased left ventricular wall thickness. The left ventricular diastolic function is grade I diastolic dysfunction. Technically difficult study with limited views. Definity echo contrast administered. Right Ventricle Right ventricular chamber dimension is normal. Right ventricular systolic function is normal. Left Atria Left atrial chamber dimension is normal. Right Atria Right atrial chamber dimension is mildly enlarged. Atrial Septum No evidence for [id number] shunt at the interatrial level with injection of agitated saline with and without Valsalva. Aortic Valve The aortic valve is trileaflet. There is no aortic valve stenosis. There is no aortic valve regurgitation. There is mild aortic valve calcification. Pulmonic Valve The pulmonic valve is not well visualized. There is trace pulmonic regurgitation. Mitral Valve The mitral valve has normal leaflets. There is no mitral valve regurgitation. The mitral valve annulus is mildly calcified. Tricuspid Valve The tricuspid valve leaflets are normal. There is mild tricuspid valve regurgitation. Mild pulmonary hypertension, estimated pulmonary arterial systolic pressure is 37 mmHg. Pericardium/Pleural The pericardium appears normal. There is small pericardial effusion. Aorta The aortic root size at the sinus of Valsalva is normal. There is mild aortic atherosclerosis. Left Ventricular Outflow Tract
[2023-03-31 05:53] LABS: Cholesterol 171 mg/dL (0-200); HDL Direct 48 mg/dL; Triglycerides 62 mg/dL (<150)
[2023-03-31 06:11] LABS: LDL Cholesterol Direct 96 mg/dL
[2023-03-31] MEDS: ASPIRIN 81 MG CHEWABLE TABLET PO (08:22)
--- NOTE | 2023-03-31 09:41 | PM.IMPN ---
Progress Note: A&P Assessment and Plan (1) Numbness and tingling of left side of face: Code(s): R20.0 - Anesthesia of skin; R20.2 - Paresthesia of skin Status: Inactive Assessment and Plan: Unsure of etiology, could be cervical neuropathy vs TIA vs ? Neuro c/s pending MRI, echo ordered (2) Left arm numbness: Code(s): R20.0 - Anesthesia of skin Status: Inactive (3) Occlusion of right vertebral artery: Code(s): I65.01 - Occlusion and stenosis of right vertebral artery Status: Acute Assessment and Plan: Start daily baby aspirin, lipitor 10 mg Check FLP, a1c (4) Left thyroid nodule: Code(s): E04.1 - Nontoxic single thyroid nodule Status: Acute Assessment and Plan: Check thyroid US, TSH, T4, T3 Plan DVT prophylaxis with SCDs GI prophylaxis not indicated Code status full code The patient presented to the emergency department for evaluation of left facial numbness and left arm numbness as detailed in HPI. His symptoms lasted less than 30 minutes before resolving and they have not returned. Labs, imaging, EKG, and all reports were personally reviewed. CTA of the head and neck showed normal brain parenchyma with 0% stenosis of the proximal internal carotid arteries but did note total occlusion of the distal right vertebral artery. Interventional stroke team at [facility] was consulted by the ED physician and they indicated this would not be something they would intervene upon and they recommended admission to [facility] for stroke workup. Dr. Couch was consulted and her input is appreciated. He will be monitored on telemetry and an echocardiogram has been ordered for a.m.. Continue neurologic checks q.4 hours. The paresthesias of the left upper extremity could be positional or related to pinched nerve however that would not explain the numbness of the face. Regarding the left thyroid nodule, he does not have any pain at this site this can be worked up as an outpatient. His vital signs have been stable. Labs were reviewed and they are stable. He has been started on a baby aspirin. Check lipids in a.m. Subjective Date/time seen: 03/31/23 09:41 Interval history: 82-year-old male with history of osteoarthritis, forehead SCC p/w dizziness, numbness left face/arm and tingling being worked up for possible TIA vs cervicogenic neuropathy. No overnight events noted. No chest pain or shortness of breath. No nausea, vomiting or diarrhea. No fevers or chills. Symptoms unchanged. Review of Systems Review of Systems: 12 point review of systems was assessed and was negative except as noted in the HPI Exam Narrative: General: No acute distress, alert and oriented per baseline HEENT: Atraumatic, normocephalic, mucous membranes moist CV: Regular rate and rhythm, S1, S2 Lungs: Clear to auscultation bilaterally, no rales or crackles noted, no wheezes, good air entry Abdomen: Soft, nontender, nondistended Extremities: Normal to inspection Skin: No rashes noted, no lesions or wounds seen Psych: Euthymic, normal affect Objective Data Vital Signs Vital Signs: Vital Signs - 24 hr 03/30/23 10:22 03/30/23 11:26 03/30/23 12:07 Temperature 98.4 F Pulse Rate 58 L 66 59 L Respiratory Rate 16 16 Blood Pressure 133/62 164/74 H Pulse Oximetry 100 100 Oxygen Delivery 03/30/23 11:26 03/30/23 11:34 03/30/23 11:45 Temperature Pulse Rate 67 59 L 59 L Respiratory Rate 15 12 10 L Blood Pressure Pulse Oximetry 100 100 100 Oxygen Delivery 03/30/23 11:46 03/30/23 12:00 03/30/23 12:15 Temperature Pulse Rate 60 59 L 59 L Respiratory Rate 13 14 14 Blood Pressure 144/74 H Pulse Oximetry 100 100 99 Oxygen Delivery 03/30/23 12:16 03/30/23 12:30 03/30/23 12:31 Temperature Pulse Rate 59 L 59 L 61 Respiratory Rate 15 13 11 L Blood Pressure 138/77 150/74 H Pulse Oximetry 99 99 98 Oxygen Del
[2023-03-31 10:45] LABS: Basophils Percent Auto 0.6 % (0.2-1.2); Eosinophils Absolute Auto 0.2 K/mm3 (0-0.3); Eosinophils Percent Auto 3.7 % (0-4.4); Hematocrit 40.3 % (42.0-52.0); Hemoglobin 13.2 g/dL (14.0-18.0); Immature Granulocyte Absolute 0.02 K/mm3 (0.00-0.031); Immature Granulocyte Percent A 0.3 % (0-0.5); Lymphocytes Absolute Auto 2.04 K/mm3 (0.9-3.2); Lymphocytes Percent Auto 32.5 % (18.3-44.2); Mean Corpuscular HGB Conc 32.8 g/dl (32-36); Mean Corpuscular Hemoglobin 32.6 pg (26-34); Mean Corpuscular Volume 99.5 fl (80-100); Mean Platelet Volume 10.2 fl (7.4-10.4); Monocytes Absolute Auto 0.7 K/mm3 (0.1-0.6); Monocytes Percent Auto 10.5 % (2.6-8.5); Neutrophils Absolute Auto 3.3 K/mm3 (1.3-6.7); Neutrophils Percent Auto 52.4 % (45.5-73.1); Platelet Count Result 217 k/mm3 (150-375); Red Blood Count 4.05 M/mm3 (4.6-6.20); Red Cell Distribution Width 12.9 % (11.5-14.5); White Blood Count 6.3 K/mm3 (4.5-10.0)
[2023-03-31 10:57] LABS: Alanine Aminotransferase 18 U/L (6-50); Albumin Level 3.9 g/dL (3.5-5.1); Alkaline Phosphatase 55 U/L (38-126); Anion Gap 7 mmol/L (8-16); Aspartate Amino Transferase 33 U/L (17-59); Bilirubin,Total 0.6 mg/dL (0.2-1.3); Blood Urea Nitrogen 22 mg/dL (9-20); CRP 0.7 mg/dL (<1.0); Calcium 8.6 mg/dL (8.4-10.2); Carbon Dioxide 28 mmol/L (22-30); Chloride 103 mmol/L (98-107); Estimated CRCL calculation 59 ml/min; Estimated Glomerular Filt Rate > 60; Glucose 82 mg/dL (65-110); Potassium 4.3 mmol/L (3.4-5.0); Sodium 138 mmol/L (137-145)
[2023-03-31 11:19] LABS: Hemoglobin A1C 5.8 % (<5.7); Procalcitonin < 0.0 ng/mL
--- NOTE | 2023-03-31 11:25 | WPDNEURCNPN ---
Assessment and Plan Assessment and plan (1) Brain TIA: Code(s): G45.9 - Transient cerebral ischemic attack, unspecified Status: Acute (2) Left thyroid nodule: Code(s): E04.1 - Nontoxic single thyroid nodule Status: Acute (3) Occlusion of right vertebral artery: Code(s): I65.01 - Occlusion and stenosis of right vertebral artery Status: Acute (4) Orthostatic dizziness: Code(s): R42 - Dizziness and giddiness Status: Acute Plan 1. Right vertebral artery occlusion. stroke team was consulted at [facility] at the time of visit to the ER no further intervention was suggested. 2 complaints of orthostatic dizziness only lasting for few minutes with change in the position from sitting to standing could be related to underlying mild neuropathy with absent deep tendon reflexes nerve conduction studies can be done as an outpatient and blood pressure can be monitored in the hospital document these orthostatic hypertension3 incidental finding of left thyroid nodule which is being investigated. routine blood studies are completely normal except mild anemia, brain MRI is negative, MRI of the lumbar spine in 2020 has documented L4-5 anterolisthesis with severe central canal stenosis, could it be related to the areflexia in the lower extremities, patient does not have any specific complaints of back pain at this stage but MRI can be repeated to evaluate the spinal stenosis, can be continued on only aspirin 81 mg daily. will benefit from routine follow-up for the possibility of early dementia at this stage routine blood studies can be obtained Consult date: 03/31/23 HPI: Calixto Ramos is a 82 year old male Admitted to the hospital through the emergency room with the complaints of intermittent dizziness over the last week but in addition to the new complaint of left facial and left upper extremity numbness since morning which lasted only for few minutes without any associated weakness or speech difficulties patient has no previous history of stroke or TIA and generally he is very active and walks 1 to 2 miles per day, he is not taking any medications, he is not allergic to any medications, he does have ongoing history of osteoarthritis with history of spinal stenosis resulting in the back surgery also history of elbow surgery and left knee surgery also right hip replacement in addition to the slight shoulder surgery as well, he does not smoke does not drink, initial evaluation in the emergency room revealed him to have normal vital signs, normal routine blood studies, negative x-ray of the chest, head and neck CT revealed total occlusion of the distal right vertebral artery with 0% stenosis of proximal internal carotid and incidental finding of thyroid nodule, generally he is very active PMF Past Medical History Medical History Osteoarthritis Squamous cell carcinoma of forehead Surgical History Surgical History History of back surgery For spinal stenosis. History of elbow surgery (2009) Dr. Anne History of left knee replacement (2010) Dr. Flor History of right hip replacement (2014) Dr. Anne History of shoulder surgery right AC separation as a youth History of squamous cell carcinoma excision Forehead History of vasectomy Status post functional endoscopic sinus surgery Family History Family History Sibling Malignant neoplasm of prostate Sibling Diabetes mellitus Social History Social History Social History: Surrogate medical decision maker: Glenn Ramos, son. Code status: Full code. Smoking status: Never smoker Alcohol intake: never Substance use: never Substance use type: does not use Lack of Transportation: No Lack of Food: Never True Current Housing:
[2023-03-31] MEDS: PERFLUTREN LIPID MICROSPHERES 1.5 ML VIAL DILUTED TO 10 ML TOTAL VOLUME IV PUSH (13:30)
[2023-03-31 14:22] LABS: Folic Acid 13.7 ng/mL (2.76->20)
--- NOTE | 2023-03-31 14:39 | IVDEFINITY ---
Prior to administration of IV Definity the patient was educated on the risks and benefits of the imaging enhancing agent including potential adverse side effects. The patient verbalized understanding. Allergies were verified. No exclusion criteria were identified and at least one of the following inclusion criteria were met: 1) physician request, 2) patient technically difficult to image (per the [place] [employer] guidelines of two or more segments not discernable within the apical view), or 3) questionable left ventricular function. ?
[2023-03-31] MEDS: ACETAMINOPHEN 325 MG TABLET 650 MG PO (16:32)
[2023-03-31] MEDS: diphenhydrAMINE HCl INJ 50 MG/ML VIAL 25 MG IV PUSH (16:33)
[2023-03-31] MEDS: METOCLOPRAMIDE HCL INJ 10 MG/2 ML VIAL IV PUSH (16:34)
--- NOTE | 2023-03-31 16:38 | PC.NURSE ---
Patient c/o left arm numbness from fingertips to upper arm and left facial numbness. Dr Pope notified, new orders received.
[2023-03-31] MEDS: CLOPIDOGREL BISULFATE 75 MG TABLET PO (16:50)
[2023-04-01] VITALS (10 sets, daily range): BP systolic 108–124; BP diastolic 63–87; PULSE 59–87; RESP 16–20; TEMP 36.5–36.9; O2SAT 97–100
--- NOTE | 2023-04-01 01:24 | P.PNCROSS_ITS ---
Event Note Event Note Event Note: Call from RN for worsening/new L sided weakness. Requesting NIHSS - per Brandi y, if + then repeat Head CT. Initial NIHSS 1a: Level of Consciousness -0 1b: LOC Questions -0 1c:?LOC Tasks -0 2:?Best Gaze -0 3:?Visual?Light -0 4: Facial Palsy?-0 5a: Motor Arm?R -0 5b: Motor Arm L -1, slight drift 6a:?Motor Leg R -0 6a:?Motor Leg L -1, dip w/return to baseline 7: Limb Ataxia -2 trace ataxia on L w/heel-[place]ob[place] and finger-nose 8: Sensation - 1, decreased on L 9:?Language/Aphasia -0 10:?Dysarthria?-1, altered per patient and 11: Extinction and Inattention -0 Total: 6 Due to exam, Code Stroke called. Onset of symptoms 1630 per RN. Repeat Head CT negative for abnormalities. IMPRESSION: No new large vessel occlusion. 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 Otherwise, no severe carotid or vertebral stenosis.
--- NOTE | 2023-04-01 01:34 | PC.NURSE ---
Code stroke called at 1930 following assessment by provider, NIRMAL Sultana. Pt sent for stat head CT after secondary assessment by rapid response team. All numbness and weakness resolved when pt returned from CT, pt still exhibits very mild speech delay and some difficulty word finding. Pt states feeling great at time of assessment.
--- NOTE | 2023-04-01 08:38 | PM.IMPN ---
Progress Note: A&P Assessment and Plan (1) Numbness and tingling of left side of face: Code(s): R20.0 - Anesthesia of skin; R20.2 - Paresthesia of skin Status: Inactive Assessment and Plan: Unsure of etiology, could be cervical neuropathy vs TIA vs ? Neuro c/s unsure of etiology, check MRI cervical + lumbar spine MRI, echo wnl (2) Left arm numbness: Code(s): R20.0 - Anesthesia of skin Status: Inactive (3) Occlusion of right vertebral artery: Code(s): I65.01 - Occlusion and stenosis of right vertebral artery Status: Acute Assessment and Plan: Start daily baby aspirin, lipitor 10 mg (4) Left thyroid nodule: Code(s): E04.1 - Nontoxic single thyroid nodule Status: Acute Assessment and Plan: Check thyroid US, recheck in 1 year Plan DVT prophylaxis with SCDs GI prophylaxis not indicated Code status full code Subjective Date/time seen: 04/01/23 08:38 Interval history: 82-year-old male with history of osteoarthritis, forehead SCC p/w dizziness, numbness left face/arm and tingling being worked up for possible TIA vs cervicogenic neuropathy. Had an episode last night that was very concerning for patient and family. Had left face, arm and leg numbness and tingling with some weakness and change to his speech, completely resolved at this point. No chest pain or shortness of breath. No nausea, vomiting or diarrhea. No fevers or chills. Symptoms unchanged. Review of Systems Review of Systems: 12 point review of systems was assessed and was negative except as noted in the HPI Exam Narrative: General: No acute distress, alert and oriented per baseline HEENT: Atraumatic, normocephalic, mucous membranes moist CV: Regular rate and rhythm, S1, S2 Lungs: Clear to auscultation bilaterally, no rales or crackles noted, no wheezes, good air entry Abdomen: Soft, nontender, nondistended Extremities: Normal to inspection Skin: No rashes noted, no lesions or wounds seen Psych: Euthymic, normal affect Neuro: Cranial nerves 2-12 grossly intact, strength +5/5 upper and lower extremities bilaterally Objective Data Vital Signs Vital Signs: Vital Signs - 24 hr 03/31/23 12:00 03/31/23 14:00 03/31/23 15:52 Temperature 97.9 F Pulse Rate 58 L 61 Respiratory Rate 16 Blood Pressure 107/64 129/58 L Pulse Oximetry 97 Oxygen Delivery 03/31/23 16:00 03/31/23 19:46 03/31/23 20:29 Temperature 97.9 F 97.7 F Pulse Rate 66 66 67 Respiratory Rate 16 18 Blood Pressure 129/58 L 133/64 Pulse Oximetry 97 98 Oxygen Delivery Room Air 04/01/23 04:56 03/31/23 20:00 04/01/23 00:00 Temperature 98.2 F Pulse Rate 62 71 66 Respiratory Rate 17 Blood Pressure 123/63 Pulse Oximetry 99 Oxygen Delivery 04/01/23 04:00 04/01/23 08:06 Temperature Pulse Rate 60 Respiratory Rate Blood Pressure Pulse Oximetry 97 Oxygen Delivery Room Air Intake/Output Intake/Output: Intake & Output 03/29/23 03/30/23 03/31/23 04/01/23 23:59 23:59 23:59 23:59 Intake Total 120 1130 Balance 120 1130 Meds/Results Medications: Active Medications Generic Name Dose Route Start Last Admin Trade Name Freq PRN Reason Stop Dose Admin Acetaminophen 650 mg 03/30/23 23:00 Acetaminophen 325 Mg Tablet PO Q6H PRN Mild Pain (1-3) or Fever Aspirin 81 mg 03/31/23 08:00 03/31/23 08:22 Aspirin 81 Mg Chewable Tablet PO 81 mg DAILY@0800 [facility] Administration Atorvastatin Calcium 5 mg 04/01/23 09:00 Atorvastatin 5 Mg Tablet PO DAILY [facility] Clopidogrel Bisulfate 75 mg 03/31/23 16:40 03/31/23 16:50 Clopidogrel Bisulfate 75 Mg Tablet PO 75 mg QAM DANNY Administration Perflutren Lipid Microsphere 0 ml 03/31/23 11:02 Perflutren Lipid Microspheres 1.5 Ml Vial Diluted To 10 Ml Total Volume IV PUSH 04/03/23 11:03 ONCE PRN adequate visualization Protocol
[2023-04-01] MEDS: ATORVASTATIN 5 MG TABLET PO (09:08)
[2023-04-01] MEDS: CLOPIDOGREL BISULFATE 75 MG TABLET PO (09:08)
[2023-04-01] MEDS: ASPIRIN 81 MG CHEWABLE TABLET PO (09:08)
--- NOTE | 2023-04-01 10:11 | WPDNEUROLOGY ---
Neurology EEG Report General Information Date of Study: 04/01/23 TEST EEG DIAGNOSIS TIA CONDITION OF RECORDING awake drowsy and sleep EEG NUMBER [id number] CLINICAL HISTORY patient had several episodes of left-sided numbness and slurring of speech by the time the EEG was done he was fine EEG DESCRIPTION basic resting occipital frequency consists of large amount of well-organized low to medium voltage 9 to 11 hertz per 2nd alpha admixed with low-voltage 15 to 18 hertz per 2nd beta. During drowsiness low-voltage beta activity seen diffusely admixed with waxing and waning posterior alpha rhythm. Bilateral symmetrical sleep activity seen during sleep. Hyperventilation not done. Photic stimulation not done. Non paroxysmal. Nonfocal. Nonlateralizing. IMPRESSION Normal record without evidence of any paroxysmal discharge clinical correlation recommended. This tracing is not compatible with seizure disorder
--- NOTE | 2023-04-01 15:08 | PC.NURSE ---
On 04/01/23, the student, [Tony Lopez], provided care and completed [facility] documentation on this patient. I have reviewed the student's documentation and agree with the findings.
[2023-04-02] VITALS (10 sets, daily range): BP systolic 116–123; BP diastolic 57–60; PULSE 54–84; RESP 14–18; TEMP 36.6–36.8; O2SAT 96–99
[2023-04-02] MEDS: ASPIRIN 81 MG CHEWABLE TABLET PO (08:22)
[2023-04-02] MEDS: ATORVASTATIN 5 MG TABLET PO (08:22)
[2023-04-02] MEDS: CLOPIDOGREL BISULFATE 75 MG TABLET PO (08:22)
--- NOTE | 2023-04-02 11:02 | PM.IMPN ---
Progress Note: A&P Assessment and Plan (1) Numbness and tingling of left side of face: Code(s): R20.0 - Anesthesia of skin; R20.2 - Paresthesia of skin Status: Inactive Assessment and Plan: Unsure of etiology, could be cervical neuropathy vs TIA vs ? Neuro c/s unsure of etiology, check MRI cervical + lumbar spine--severe stenosis, neuro surgery consult placed in pending MRI, echo wnl (2) Left arm numbness: Code(s): R20.0 - Anesthesia of skin Status: Inactive (3) Occlusion of right vertebral artery: Code(s): I65.01 - Occlusion and stenosis of right vertebral artery Status: Acute Assessment and Plan: Start daily baby aspirin, lipitor 10 mg (4) Left thyroid nodule: Code(s): E04.1 - Nontoxic single thyroid nodule Status: Acute Assessment and Plan: Check thyroid US, recheck in 1 year Plan DVT prophylaxis with SCDs GI prophylaxis not indicated Code status full code Subjective Date/time seen: 04/02/23 11:02 Interval history: 82-year-old male with history of osteoarthritis, forehead SCC p/w dizziness, numbness left face/arm and tingling being worked up for possible TIA vs cervicogenic neuropathy. No overnight events noted. No chest pain or shortness of breath. No nausea, vomiting or diarrhea. No fevers or chills. Patient denies any episodes recently. Review of Systems Review of Systems: 12 point review of systems was assessed and was negative except as noted in the HPI Exam Narrative: General: No acute distress, alert and oriented per baseline HEENT: Atraumatic, normocephalic, mucous membranes moist CV: Regular rate and rhythm, S1, S2 Lungs: Clear to auscultation bilaterally, no rales or crackles noted, no wheezes, good air entry Abdomen: Soft, nontender, nondistended Extremities: Normal to inspection Skin: No rashes noted, no lesions or wounds seen Psych: Euthymic, normal affect Neuro: Cranial nerves 2-12 grossly intact, strength +5/5 upper and lower extremities bilaterally Objective Data Vital Signs Vital Signs: Vital Signs - 24 hr 04/01/23 11:17 04/01/23 11:17 04/01/23 13:43 Temperature 98.4 F Pulse Rate 62 87 Respiratory Rate 20 Blood Pressure 124/69 Pulse Oximetry 100 Oxygen Delivery Room Air 04/01/23 12:00 04/01/23 16:00 04/01/23 20:00 Temperature Pulse Rate 73 69 59 L Respiratory Rate Blood Pressure Pulse Oximetry Oxygen Delivery 04/01/23 20:00 04/01/23 22:00 04/02/23 00:00 Temperature 97.7 F Pulse Rate 67 60 Respiratory Rate 16 Blood Pressure 108/87 Pulse Oximetry 99 Oxygen Delivery Room Air 04/02/23 04:00 04/02/23 06:00 04/02/23 08:22 Temperature 98.1 F Pulse Rate 61 61 Respiratory Rate 14 Blood Pressure 123/57 L Pulse Oximetry 97 Oxygen Delivery Room Air 04/02/23 08:00 Temperature Pulse Rate 65 Respiratory Rate Blood Pressure Pulse Oximetry Oxygen Delivery Intake/Output Intake/Output: Intake & Output 03/30/23 03/31/23 04/01/23 04/02/23 23:59 23:59 23:59 23:59 Intake Total 120 1130 1160 710 Balance 120 1130 1160 710 Meds/Results Medications: Active Medications Generic Name Dose Route Start Last Admin Trade Name Freq PRN Reason Stop Dose Admin Acetaminophen 650 mg 03/30/23 23:00 Acetaminophen 325 Mg Tablet PO Q6H PRN Mild Pain (1-3) or Fever Aspirin 81 mg 03/31/23 08:00 04/02/23 08:22 Aspirin 81 Mg Chewable Tablet PO 81 mg DAILY@0800 [facility] Administration Atorvastatin Calcium 5 mg 04/01/23 09:00 04/02/23 08:22 Atorvastatin 5 Mg Tablet PO 5 mg DAILY [facility] Administration Clopidogrel Bisulfate 75 mg 03/31/23 16:40 04/02/23 08:22 Clopidogrel Bisulfate 75 Mg Tablet PO 75 mg QAM DANNY Administration Perflutren Lipid Microsphere 0 ml 03/31/23 11:02 Perflutren Lipid Microspheres 1.5 Ml Vial Diluted To 10 Ml Total Volume IV PUSH
--- NOTE | 2023-04-02 12:04 | WPDNEUROPN ---
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 Ramos is an 82 year old male with no significant past medical history presenting due to dizziness and left sided numbness. MRI brain was negative for acute infarct. CTA showed occlusion of distal right vertebral artery. Suspect most likely TIA given the angio findings and distribution of his symptoms. There may be a component of radiculopathy that could cause the LUE paraesthesias. - Agree with Aspirin and Lipitor - Plavix 75mg x 3 months - Consider neurosurgical evaluation for LUE paraesthesias Subjective Date/time seen: 04/02/23 12:04 Interval history: Mr. Ramos is an 82 year old male previously healthy who presented due to dizziness and numbness involving the left face and arm. He woke up with the left side of his face, left arm, and left 4th and 5th digits numb. The sensation in the arm resolved within a few minutes and the left facial numbness resolved shortly afterwards. Associated symptoms include dizzines described as room spinning. He presented to [facility] for evaluation of his symptoms. At the time of admission he had no symptoms. His CT head was negative for acute change. CTA showed complete occlusion of R V4 segment. The ED discussed case with stroke team at [facility] and their interventional team and they decided that he was not a candidate for any kind of intervention. He was admitted. MRI brain was negative for acute stroke. His blood pressure on admission was initially elevated to the 160s but has been normal since then. LDL 96, HgbA1c 5.8. He has been started on aspirin, plavix, and lipitor. On the night following admission, patient developed worsening left sided weakness and dysarthria (with NIH score of 6). Repeat CT head and CTA were obtained which were negative. EEG was done to evaluate for seizure tendency and that was normal as well. MRI cervical spine was obtained due to patient's recurrent LUE numbness, which showed severe spondylosis. Surface echo did not reveal any shunt. EKG was normal. Patient reports that he no longer has any symptoms and has not had any episodes since two days ago. He denies any other concerns. Review of Systems Constitutional: Constitutional: Denies chills, Denies fever(s) and Denies weight loss Eyes: Eyes: Denies diplopia and Denies loss of vision ENT: Denies dizziness, Denies hearing loss and Denies tinnitus Cardiovascular: Cardiovascular: Denies chest pain, Denies syncope and Denies dyspnea Respiratory: Respiratory: Denies cough, Denies dyspnea and Denies wheezing Gastrointestinal: Gastrointestinal: Denies abdominal pain, Denies change in bowel habits and Denies vomiting Genitourinary: Genitourinary: Denies urinary incontinence Musculoskeletal: Musculoskeletal: Denies arthralgias and Denies joint swelling Integumentary/Breasts: Skin/Breast: Denies new lesions and Denies rash Neurologic: Reports as per HPI, Denies dizziness, Denies syncope and Denies loss of vision Psychiatric: Psychiatric: Denies anxiety and Denies depression Endocrine: Endocrine: Denies cold intolerance and Denies heat intolerance Hematologic/Lymphatic: Hematologic/Lymphatic: Denies easy bleeding and Denies easy bruising Allergic/Immunologic: Allergic/Immunologic: Denies no additional allergic/immunologic complaints and Denies wheezing Exam Const: General: comfortable and no acute distress HENMT: Mouth: Yes moist mucous membranes Eyes: Pupils: Equal, round and reactive pupils present EOM: EOMs intact bilaterally Resp: Effort &
[2023-04-03] VITALS: PULSE 66
[2023-04-03 04:00] VITALS: PULSE 52
[2023-04-03 04:43] VITALS: BP 120/58; PULSE 90; RESP 16; TEMP 36.6; O2SAT 100
[2023-04-03 08:00] VITALS: PULSE 68
[2023-04-03] MEDS: ASPIRIN 81 MG CHEWABLE TABLET PO (08:10)
[2023-04-03] MEDS: CLOPIDOGREL BISULFATE 75 MG TABLET PO (08:11)
[2023-04-03] MEDS: ATORVASTATIN 5 MG TABLET PO (08:11)
[2023-04-03 12:00] VITALS: PULSE 73
--- NOTE | 2023-04-03 12:07 | PM.IMPN ---
Progress Note: A&P Assessment and Plan (1) Numbness and tingling of left side of face: Code(s): R20.0 - Anesthesia of skin; R20.2 - Paresthesia of skin Status: Inactive Assessment and Plan: Unsure of etiology, could be cervical neuropathy vs TIA vs ? Neuro c/s unsure of etiology, check MRI cervical + lumbar spine--severe stenosis, neuro surgery consult placed in pending MRI, echo wnl (2) Left arm numbness: Code(s): R20.0 - Anesthesia of skin Status: Inactive (3) Occlusion of right vertebral artery: Code(s): I65.01 - Occlusion and stenosis of right vertebral artery Status: Acute Assessment and Plan: Start daily baby aspirin, lipitor 10 mg, add plavix 75 mg x 3 months for DAPT (4) Left thyroid nodule: Code(s): E04.1 - Nontoxic single thyroid nodule Status: Acute Assessment and Plan: Check thyroid US, recheck in 1 year Plan DVT prophylaxis with SCDs GI prophylaxis not indicated Code status full code Subjective Date/time seen: 04/03/23 12:07 Interval history: 82-year-old male with history of osteoarthritis, forehead SCC p/w dizziness, numbness left face/arm and tingling being worked up for possible TIA vs cervicogenic neuropathy. No overnight events noted. No chest pain or shortness of breath. No nausea, vomiting or diarrhea. No fevers or chills. Patient denies any episodes recently. Review of Systems Review of Systems: 12 point review of systems was assessed and was negative except as noted in the HPI Exam Narrative: General: No acute distress, alert and oriented per baseline HEENT: Atraumatic, normocephalic, mucous membranes moist CV: Regular rate and rhythm, S1, S2 Lungs: Clear to auscultation bilaterally, no rales or crackles noted, no wheezes, good air entry Abdomen: Soft, nontender, nondistended Extremities: Normal to inspection Skin: No rashes noted, no lesions or wounds seen Psych: Euthymic, normal affect Neuro: Cranial nerves 2-12 grossly intact, strength +5/5 upper and lower extremities bilaterally Objective Data Vital Signs Vital Signs: Vital Signs - 24 hr 04/02/23 16:00 04/02/23 15:06 04/02/23 19:32 Temperature 97.8 F 98.3 F Pulse Rate 66 69 60 Respiratory Rate 18 16 Blood Pressure 116/59 L 116/60 Pulse Oximetry 97 96 Oxygen Delivery 04/02/23 20:00 04/03/23 00:00 04/03/23 04:00 Temperature Pulse Rate 54 L 66 52 L Respiratory Rate Blood Pressure Pulse Oximetry Oxygen Delivery 04/03/23 04:43 04/02/23 21:36 04/03/23 08:00 Temperature 97.9 F Pulse Rate 90 Respiratory Rate 16 Blood Pressure 120/58 L Pulse Oximetry 100 99 Oxygen Delivery Room Air Room Air Intake/Output Intake/Output: Intake & Output 03/31/23 04/01/23 04/02/23 04/03/23 23:59 23:59 23:59 23:59 Intake Total 1130 1160 1800 710 Balance 1130 1160 1800 710 Meds/Results Medications: Active Medications Generic Name Dose Route Start Last Admin Trade Name Freq PRN Reason Stop Dose Admin Acetaminophen 650 mg 03/30/23 23:00 Acetaminophen 325 Mg Tablet PO Q6H PRN Mild Pain (1-3) or Fever Aspirin 81 mg 03/31/23 08:00 04/03/23 08:10 Aspirin 81 Mg Chewable Tablet PO 81 mg DAILY@0800 [facility] Administration Atorvastatin Calcium 5 mg 04/01/23 09:00 04/03/23 08:11 Atorvastatin 5 Mg Tablet PO 5 mg DAILY [facility]AN[facility] Administration Clopidogrel Bisulfate 75 mg 03/31/23 16:40 04/03/23 08:11 Clopidogrel Bisulfate 75 Mg Tablet PO 75 mg QAM DANNY Administration Radiology Results: ITS Impressions Chest X-Ray 03/30/23 11:21 IMPRESSION: 1. No acute cardiopulmonary abnormality. Brain MRI 03/31/23 07:18 IMPRESSION: 1. Normal brain. Thyroid Ultrasound 03/31/23 19:00 IMPRESSION: 2.3 cm mildly suspicious left thyroid nodule (TR 3). Consider follow-up thyroid ultrasound in 1 year, depending on the patient's comorbid
--- NOTE | 2023-04-03 12:51 | WPDNEUROSGCN ---
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 He has no appreciable pain in his neck or upper extremity that would be expected with a pinched nerve. Although the symptom is not always present it is almost always the most prominent symptom of a pinched nerve in the neck. The numbness in the arm it seems to be in a C8 or ulnar distribution and perhaps some issue with 1 of those nerves could be happening but the history is not consistent with that. In any case these are outpatient problems and he does not need to stay in the hospital for them to be evaluated and treated may follow-up with me at any time if necessary. Neck and arm pain, associated with any sort of neurologic issue and isolation would be a reason for him to follow-up with me. The somewhat global constitutional episodes that he is having are not related to his neck or back. I cannot explain the dizziness or the feeling of impending doom more the tightness and constitutional weakness that seemed to be gripping him during these episodes. Consult date: 04/03/23 HPI: Calixto Ramos is a 82 year old male who was admitted earlier this week with symptoms of dizziness, constitutional weakness and numbness in his left upper extremity. Attention has been. Mostly to possibility that he has heart attack or stroke. Apparently neither has been diagnosed. There is some concern for TIAs. It sounds as though he has had an MRI of his brain, ultrasound of his carotid arteries and an echocardiogram, none of which demonstrated any abnormalities that need to be treated. I think because of the left upper extremity numbness scans were performed of his neck and back. He states that he has had episodic numbness in the left upper extremity just for the last week. This occurs randomly and at rest. He does not report pain in his neck or upper extremities nor in his back or lower extremities. He does not report specific muscle group weakness in either upper or lower extremity. He is not having new bowel or bladder difficulty. Currently, he feels back to his baseline and feels as though he could go back to walking a mi a day and lifting weights at a low level as he has been doing for some time. Review of Systems Review of Systems: All systems reviewed & are unremarkable except as noted in HPI and below Constitutional: Constitutional: Reports fatigue and Reports weakness Eyes: Eyes: Reports as per HPI ENT: Reports system reviewed and no additional complaints, except as documented Cardiovascular: Comments: Chest tightness Respiratory: Respiratory: Reports as per HPI Gastrointestinal: Gastrointestinal: Reports as per HPI Genitourinary: Genitourinary: Reports no additional male genitourinary complaints Musculoskeletal: Comments: No neck or back pain Neurologic: Reports numbness and Reports weakness Psychiatric: Psychiatric: Reports no additional psychiatric complaints [facility] Past Medical History Medical History Osteoarthritis Squamous cell carcinoma of forehead Surgical History Surgical History History of back surgery For spinal stenosis. History of elbow surgery (2009) Dr. Anne History of left knee replacement (2010) Dr. Flor History of right hip replacement (2014) Dr. Anne History of shoulder surgery right AC separation as a youth History of squamous cell carcinoma excision Forehead History of vasectomy Status post functional endoscopic sinus surgery Family History Family History (Reviewed
--- NOTE | 2023-04-03 13:20 | PM.DS ---
DS: Admitting Diagnosis Discharge Date 04/03/23 Admitting Diagnosis left sided numbness/tingling DS: Discharge Diagnosis Discharge Diagnosis (1) Numbness and tingling of left side of face: Code(s): R20.0 - Anesthesia of skin; R20.2 - Paresthesia of skin Status: Inactive Assessment and Plan: Unsure of etiology, could be cervical neuropathy vs TIA vs ? Neuro c/s unsure of etiology, check MRI cervical + lumbar spine--severe stenosis, neuro surgery consult placed in pending MRI, echo wnl (2) Left arm numbness: Code(s): R20.0 - Anesthesia of skin Status: Inactive (3) Occlusion of right vertebral artery: Code(s): I65.01 - Occlusion and stenosis of right vertebral artery Status: Acute Assessment and Plan: Start daily baby aspirin, lipitor 10 mg, add plavix 75 mg x 3 months for DAPT (4) Left thyroid nodule: Code(s): E04.1 - Nontoxic single thyroid nodule Status: Acute Assessment and Plan: Check thyroid US, recheck in 1 year Plan DVT prophylaxis with SCDs GI prophylaxis not indicated Code status full code DS: Summary Hospital Course Hospital Course: 82-year-old male with history of osteoarthritis, forehead SCC p/w dizziness, numbness left face/arm and tingling being worked up for possible TIA vs cervicogenic neuropathy. Unsure of etiology, could be cervical neuropathy vs TIA vs ? Neuro c/s unsure of etiology, check MRI cervical + lumbar spine--severe stenosis, neuro surgery consult placed in pending MRI, echo wnl Neurology was consulted. Recommended Aspirin and Lipitor, Plavix 75mg x 3 months. Neurosurgery was consulted: The numbness in the arm it seems to be in a C8 or ulnar distribution and perhaps some issue with 1 of those nerves could be happening but the history is not consistent with that.? In any case these are outpatient problems and he does not need to stay in the hospital for them to be evaluated and treated may follow-up with me at any time if necessary.? Neck and arm pain, associated with any sort of neurologic issue and isolation would be a reason for him to follow-up with me.? The somewhat global constitutional episodes that he is having are not related to his neck or back.? I cannot explain the dizziness or the feeling of impending doom more the tightness and constitutional weakness that seemed to be gripping him during these episodes. Please see above and med rec for details. Time Spent with Patient Time attestation: Total time spent providing and/or coordinating discharge services: Exam Narrative: General: No acute distress, alert and oriented per baseline HEENT: Atraumatic, normocephalic, mucous membranes moist CV: Regular rate and rhythm, S1, S2 Lungs: Clear to auscultation bilaterally, no rales or crackles noted, no wheezes, good air entry Abdomen: Soft, nontender, nondistended Extremities: Normal to inspection Skin: No rashes noted, no lesions or wounds seen Psych: Euthymic, normal affect Neuro: Cranial nerves 2-12 grossly intact, strength +5/5 upper and lower extremities bilaterally Discharge Plan Discharge Attending physician on discharge: Sara Ramirez Consulting providers: Shanika Couch; Kennedy Triana Discharging Clinician: Sara Ramirez Patient Disposition: Home, Self-Care Activity: as tolerated Diet: as tolerated Discharge Instructions: 1. take aspirin 81 mg, lipitor 10 mg daily indefinitely 2. take plavix 75 mg daily for 3 months 3. follow up with neurology 4. come in if the symptoms recur and do not resolve with rest within 10-15 minutes. take 4 baby aspirin and call 911 or come to the er. Patient Instructions: Antibiotic Form Stand Alone Forms: General Discharge Information Follow-up/Referrals: Negro,Wellington Berry MD [Primary Care Provider] - Shanika Couch MD [Physician] - Discharge Medications: New aspirin [Children's Aspirin] 81 mg Tabl
== END 2023-04-03 14:00 | disposition home or self-care (01) | DRG 69 ==
LOC: ANHED 12:20 → ANH2MED 17:29
PROVIDERS: Physician Assistant; Preventive Medicine Aerospace Medicine; Psychiatry & Neurology Neurology; Admitting Provider Hospitalist; Emergency Provider Emergency Medicine; PCP Internal Medicine; Visit Provider Student in an Organized Health Care Education/Training Program
DX: G45.9 Transient cerebral ischemic attack, unspecified (principal); I65.01 Occlusion and stenosis of right vertebral artery; M47.22 Other spondylosis with radiculopathy, cervical region; E04.1 Nontoxic single thyroid nodule; M19.90 Unspecified osteoarthritis, unspecified site; R42 Dizziness and giddiness; M48.02 Spinal stenosis, cervical region; M48.061 Spinal stenosis, lumbar region without neurogenic claudication; Z96.652 Presence of left artificial knee joint; Z96.641 Presence of right artificial hip joint; Z85.828 Personal history of other malignant neoplasm of skin
CPT/HCPCS: 36415; 70450; 70496; 70498; 70553; 71046; 72141; 72148; 76536; 80053; 80061; 81003; 82607; 82746; 82948; 83036; 84145; 84443; 85025; 85610; 85730; 86140; 93005; 95816; 96374; 96375; 99285; A9270; A9577; C8929; G0378; J1200; J2765; Q9957; Q9967

== ENCOUNTER 2023-04-20 19:10 | Observation (INO) | payer MEDICARE, BC, SELFPAY ==
[2023-04-20] VITALS (11 sets, daily range): BP systolic 120; BP diastolic 74; PULSE 60–69; RESP 11–16; O2SAT 92–100
--- NOTE | ~2023-04-20 | CT_ITS ---
EXAMINATION: CT brain wo con DATE: 04/20/2023 19:31 INDICATION: numbness . TECHNIQUE: Computed tomography (CT) of the head was performed without intravenous contrast. The mA wa s adjusted according to patient size. Iterative reconstruction technique was employed. The dose-lengt h product was 605.33 mGy-cm. COMPARISON: 03/31/2023. FINDINGS: No acute intracranial hemorrhage or extra-axial fluid collection. No hydrocephalus, mass, or herniation. No acute ischemic infarct. Unremarkable dural venous sinus attenuation. No acute osseous abnormality. The aerated spaces are clear. Mild atrophy and chronic white matter change. Atherosclerotic intracranial calcification. Bilateral l ens replacements. IMPRESSION: No acute intracranial process. Reviewed, dictated and finalized at location K.
--- NOTE | ~2023-04-20 | CT_ITS ---
EXAMINATION: CTA brain carotid DATE: 04/20/2023 20:36 INDICATION: stroke TECHNIQUE: Computed tomographic angiography (CTA) of the head and neck was performed with 100 mL Omni paque-350 intravenous contrast. Automated exposure control and iterative reconstruction technique wer e employed. The dose-length product was 1098.55 mGy-cm. Maximum intensity projection and volume rende red 3D-reconstructions were created by the technologist on a separate workstation. COMPARISON: CT brain same date; CTA brain carotid 03/31/2023. FINDINGS: CTA HEAD: No large vessel occlusion, aneurysm, high flow vascular malformation, nidus or extravasation. Calcifi ed plaque in the bilateral intradural portions of the vertebral arteries. Short segment moderate sten oses in the hypoplastic intradural segment of the right distal vertebral artery, including stable manuela rt segment total or near-total occlusion. Persistent origin of the right posterior cerebral art augusta, a normal variant. Hypoplastic/absent right A1 segment, a normal variant. Carotid siphon calcific ations without significant stenosis. Symmetric parenchymal enhancement. Patent cerebral veins. CTA NECK: Aortic arch and proximal great vessels: Bovine arch. Right common carotid, carotid bifurcation, and internal carotid artery: Calcified plaque at the bifur cation.There is 0% stenosis of the proximal right internal carotid artery relative to normal distal a rtery lumen diameter (NASCET criteria). Left common carotid, carotid bifurcation, and internal carotid artery: Calcified plaque in the common carotid and at the bifurcation.There is 0% stenosis of the proximal left internal carotid artery rel ative to normal distal artery lumen diameter (NASCET criteria). Vertebral arteries: Noncalcified plaque at the right vertebral artery origin causing moderate stenosi s. Left vertebral artery is dominant. Other findings: Heterogeneous 2.4 cm left thyroid nodule, previously imaged. IMPRESSION: No new large vessel occlusion. No significant carotid stenosis. Moderate stenoses noted in the hypoplastic right vertebral artery at its origin and intradural segmen t, including stable short segment total or near-total occlusion in the V4 segment of the right verteb ral artery. Reviewed, dictated and finalized at location K. IMPRESSION: No new large vessel occlusion. No significant carotid stenosis. Moderate stenoses noted in the hypoplastic right vertebral artery at its origin and intradural segment, including stable short segment total or near-total occ lusion in the V4 segment of the right vertebral artery.
[2023-04-20 19:21] LABS: Glucose Point of Care 99 mg/dl (65-105)
--- NOTE | 2023-04-20 19:23 | ECG_ITS ---
Measurements Intervals [place] Rate: 65 P: 47 LA: 204 QRS: 31 QRSD: 98 T: 43 QT: 411 QTc: 429 Interpretive Statements SINUS RHYTHM VENTRICULAR PREMATURE COMPLEX MINIMAL Q WAVES- INFERIOR LEADS BASELINE ARTIFACT- V3 BORDERLINE ECG COMPARED TO ECG 03/30/2023 10:45:32 SINUS RHYTHM NOW PRESENT Electronically Signed On 04-20-2023 20:15:55 CDT by Carter Martines D.O.
--- NOTE | 2023-04-20 19:25 | ED.NEUROSD ---
HPI - Neuro Symptoms/Deficit General Chief Complaint: Suspected CVA Stated Complaint: TIA Time Seen by Provider: 04/20/23 19:22 History of Present Illness HPI Narrative: Patient 82-year-old gentleman who presents emerged part with chief complaint of left-sided numbness. The patient reports that he was discharged from the hospital on the eighth after having a possible TIA the patient states that he has been having episodes of dizziness and this morning around 4 AM had some difficulty with ambulation the patient states that resolved and that he has had several other episodes. Patient states that this evening about 30 minutes prior to arrival he developed some numbness in his left arm and left face. Patient states he does have history of peripheral neuropathy in his lower extremities Related Data Allergies Allergy/AdvReac Type Severity Reaction Status Date / Time No Known Allergies Allergy Unknown Verified 04/20/23 19:11 Review of Systems Review of Systems: A 10 system review of systems was completed on the patient and is negative except for what is stated in the HPI. Nursing and ancillary documentation was reviewed. [facility] Past Medical History Medical History Osteoarthritis Squamous cell carcinoma of forehead Surgical History Surgical History History of back surgery For spinal stenosis. History of elbow surgery (2009) Dr. Anne History of left knee replacement (2010) Dr. Flor History of right hip replacement (2014) Dr. Anne History of shoulder surgery right AC separation as a youth History of squamous cell carcinoma excision Forehead History of vasectomy Status post functional endoscopic sinus surgery Family History Family History Sibling Malignant neoplasm of prostate Sibling Diabetes mellitus Social History Social History Social History: Surrogate medical decision maker: Glenn Ramos, son. Code status: Full code. Smoking status: Never smoker Alcohol intake: never Substance use: never Substance use type: does not use Lack of Transportation: No Lack of Food: Never True Current Housing: I Have Housing Concerned About Future Housing: No Difficulty Paying Gas/Electric Bills: No Difficulty Paying for Meds: No Currently Unemployed: No Education: High School Diploma/GED Difficulty w/ Childcare or Family Care: No Living arrangements: with family Additional living arrangements comments: Lives with spouse in [place]. Enjoys playing piano at local nursing homes. Walks 1 to 2 miles most days of the week. Additional occupation/education comments: Retired from [employer]. Spiritual care concerns: No Exam Narrative: GENERAL: Well-appearing, well-nourished, and in no acute distress. HEAD: Normocephalic, atraumatic. EYES: PERRLA and EOMI. ENT: Nares clear, no rhinorrhea or epistaxis. Mucous membranes moist. NECK: Supple. CHEST: Clear to auscultation. No respiratory distress. HEART: Regular rate and rhythm. No murmur heard. Normal peripheral pulses. ABDOMEN: Soft, nontender, nondistended, normal active bowel sounds. EXTREMITIES: Normal range of motion. No edema. SKIN: Warm, dry, no rash. NEURO: No focal deficits. Alert and oriented x3. PSYCH: Normal mood and affect. Course Vital Signs Vital signs: Vital Signs Pulse Oximetry 98 04/20/23 19:45 Pulse Rate 69 04/20/23 21:15 Respiratory Rate 13 04/20/23 21:15 Blood Pressure 120/74 04/20/23 19:47 Pulse Oximetry 92 04/20/23 21:15 MDM - Neuro Symptoms/Deficit MDM Narrative Medical decision making narrative: Differential diagnosis includes CVA, intracranial hemorrhage, TIA, dysrhythmia Patient symptoms are rapidly improving and resolving plan [facility] is
[2023-04-20] MEDS: SODIUM CHLORIDE 0.9% IV 1,000 ML 999 ML IV CONT (19:49)
[2023-04-20 20:07] LABS: Basophils Percent Auto 0.7 % (0.2-1.2); Eosinophils Absolute Auto 0.3 K/mm3 (0-0.3); Eosinophils Percent Auto 5.4 % (0-4.4); Hematocrit 35.2 % (42.0-52.0); Hemoglobin 11.7 g/dL (14.0-18.0); Immature Granulocyte Absolute 0.02 K/mm3 (0.00-0.031); Immature Granulocyte Percent A 0.4 % (0-0.5); Lymphocytes Percent Auto 33.4 % (18.3-44.2); Mean Corpuscular HGB Conc 33.2 g/dl (32-36); Mean Corpuscular Volume 99.2 fl (80-100); Monocytes Absolute Auto 0.5 K/mm3 (0.1-0.6); Monocytes Percent Auto 9.5 % (2.6-8.5); Neutrophils Absolute Auto 2.9 K/mm3 (1.3-6.7); Neutrophils Percent Auto 50.6 % (45.5-73.1); Platelet Count Result 227 k/mm3 (150-375); Red Blood Count 3.55 M/mm3 (4.6-6.20); Red Cell Distribution Width 12.5 % (11.5-14.5); White Blood Count 5.7 K/mm3 (4.5-10.0)
[2023-04-20 20:21] LABS: Alanine Aminotransferase 20 U/L (6-50); Albumin Level 3.4 g/dL (3.5-5.1); Alkaline Phosphatase 55 U/L (38-126); Anion Gap 4 mmol/L (8-16); Aspartate Amino Transferase 38 U/L (17-59); Bilirubin,Total 0.4 mg/dL (0.2-1.3); Blood Urea Nitrogen 23 mg/dL (9-20); Carbon Dioxide 27 mmol/L (22-30); Chloride 107 mmol/L (98-107); Estimated Glomerular Filt Rate > 60; Glucose 120 mg/dL (65-110); Lactic Acid Reflex 1.4 mmol/L (0.7-2.0); Magnesium 2.1 mg/dL (1.6-2.3); Potassium 3.7 mmol/L (3.4-5.0); Sodium 138 mmol/L (137-145)
[2023-04-20 20:24] LABS: INR 1.1; Prothrombin Time 14.3 Seconds (11.1-14.7)
[2023-04-20 20:25] LABS: Partial Thromboplastin Time 31.9 SECONDS (22.3-36.8)
[2023-04-20 20:32] LABS: Troponin I 0.018 ng/mL (0.000-0.034)
[2023-04-20 21:36] LABS: Appearance Urine Clear (Clear); Bilirubin Urine Negative (Negative); Blood Urine Negative (Negative); Color Urine Yellow (Yellow); Glucose Urine UA Negative (Negative); Ketones Urine Negative (Negative); Leukocyte Esterase Ur Negative LEU/UL (Negative); Nitrate Urine Negative (Negative); Protein Urine Negative (Negative)
[2023-04-20 21:39] LABS: Specific Grav Ur 1.077 (1.001-1.035)
[2023-04-20 21:40] LABS: Add Urine Microscopic? NO
--- NOTE | 2023-04-20 23:11 | PC.NURSE ---
report and care given to AMADOR Lundberg. all questions answered.
[2023-04-21] VITALS (8 sets, daily range): BP systolic 134–149; BP diastolic 67–90; PULSE 51–68; RESP 14; TEMP 36.4–36.6; O2SAT 99–100; BMI 27.2
--- NOTE | 2023-04-21 00:15 | ADMGEN ---
This patient, Calixto Milian, was admitted to Medical Room 349-01. Patient/family oriented to hospital policies and general routines including ID bracelet, bed and alarms, visiting hours, pain management, procedures, bathroom and other care routines, personal items, smoking policy, room service/diet, and visiting hours. Information on how to activate the Rapid Response Team has been discussed. Patient/Family are encouraged to report perceived risks to care and to ask questions if they do not understand what they are told or what they should do.
--- NOTE | 2023-04-21 00:50 | PM.IMHP ---
H&P: HPI History of Present Illness Date/Time: 04/21/23 00:50 Chief Complaint: Left facial numbness and arm numbness Narrative: 82-year-old with a past medical history of severe cervical spondylosis, [id number] osteoarthritis and multiple recent episodes of TIA symptoms who presented to the ER with recurrent facial paresthesias and left arm. Patient was just hospitalized 03/30 through 04/03/2023 for TIA symptoms. MRI brain and cervical spine at that time the cervical spine. MRI demonstrated severe cervical spine stenosis and recommended outpatient follow-up. He was started on Plavix 75 mg for 3 months and baby aspirin daily as well as low-dose Lipitor. He had an echocardiogram performed which demonstrated normal EF with grade 1 diastolic dysfunction and mild pulmonary edema. He had a CT of the head and neck on the and the which demonstrated stable segmental occlusion of the right V4 segment of the vertebral artery. He reports that he walks 2 miles a day with walking sticks. He also plays the piano each week. He reports that recently he has been having episodes of weakness when he returns home after a walk and can only make it a couple of 100 yd without the walking sticks after a puts them back in the car. But other than that and his chronic right shoulder pain he has not been having any other symptoms. Then today his grandson told him that it was healing. He stood up and made it about long term across the room to go look at the Mi. When he got about long term across the room he developed left facial paresthesias and paresthesias of the left arm. He reported that both legs felt weak and wobbly like he may fall. He he felt lightheaded as if he may pass out. He did not have any changes in speech. He has had down to put his head in his hands. His symptoms did not improve. His gave him 4 baby aspirins which she took. His drove him to the ER as they only live a couple of minutes from the hospital. A few minutes after he arrived in the hospital his symptoms had resolved. His symptoms lasted about 20 minutes. Symptoms were similar to his prior episodes of TIA. Review of Systems Review of Systems: 10 systems were reviewed with pertinent positives and negatives per HPI. Except as documented in the HPI, all other systems were reviewed and are negative. [facility] Past Medical History Medical History Brain TIA Osteoarthritis Squamous cell carcinoma of forehead Surgical History Surgical History History of back surgery For spinal stenosis. History of elbow surgery (2009) Dr. Anne History of left knee replacement (2010) Dr. Flor History of right hip replacement (2014) Dr. Anne History of shoulder surgery right AC separation as a youth History of squamous cell carcinoma excision Forehead History of vasectomy Status post functional endoscopic sinus surgery Family History Family History Sibling Malignant neoplasm of prostate Sibling Diabetes mellitus Social History Social History Social History: Surrogate medical decision maker: Glenn Ramos, kyle. Code status: Full code. Smoking status: Never smoker Alcohol intake: never Substance use: never Substance use type: does not use Lack of Transportation: No Lack of Food: Never True Current Housing: I Have Housing Concerned About Future Housing: No Difficulty Paying Gas/Electric Bills: No Difficulty Paying for Meds: No Currently Unemployed: No Education: High School Diploma/GED Difficulty w/ Childcare or Family Care: No Living arrangements: with family Additional living arrangements comments: Lives with spouse in [place]. Enjoys playing piano at local nursing homes. Walks 1 to 2 miles most days of the week. [place]
[2023-04-21] MEDS: CLOPIDOGREL BISULFATE 75 MG TABLET PO (08:04)
[2023-04-21] MEDS: ATORVASTATIN 10 MG TABLET PO (08:04)
[2023-04-21] MEDS: ASPIRIN 81 MG CHEWABLE TABLET PO (08:04)
--- NOTE | 2023-04-21 11:06 | WPDNEURCNPN ---
Assessment and Plan Assessment and plan (1) Brain TIA: Code(s): G45.9 - Transient cerebral ischemic attack, unspecified Status: Acute (2) Spondylolisthesis at L4-L5 level: Code(s): M43.16 - Spondylolisthesis, lumbar region Status: Acute (3) Cervical spondylolysis: Code(s): M43.02 - Spondylolysis, cervical region Status: Acute Plan 1 moderate stenosis in the hypoplastic right vertebral artery at its origin and intradural segment which was noted previously as well and the patient has been getting the aspirin and Plavix regularly will be continued as such 2 neurosurgical opinion was obtained during his most recent previous hospitalization when the symptomatology was not attributed to the cervical spine area3 will explain to the family that his symptomatology is unrelated to those etiologies and is taking the appropriate medication will be continued as such. Consult date: 05/05/23 HPI: Calixto Milian is a 82 year old male Admitted to the hospital through the emergency room for the chief complaint of left-sided numbness patient was recently discharged from the hospital on the 8th of the month after the possible TIA and he has been experiencing episodic dizziness particularly in the morning around 4:00 a.m. Santa has some difficulties in ambulation symptomatology resolved according to him in about 30 minutes prior to the arrival and he is not allergic to any medications. he has ongoing history of back surgery for spinal stenosis in addition to bilateral surgery on his left knee and right hip in addition to the right shoulder as well, he has never a smoker never a drinker, and initial exam in the emergency room revealed him to have no focal deficit, his vital signs were normal initial CT scan of the head revealed no bleed CTA of the head and neck revealed no acute changes and routine lab studies were normal patient had been taking aspirin and clopidogrel along with the atorvastatin. he CTA did document moderate stenosis in the hypoplastic right vertebral artery at the origin and intradural segment and near occlusion in the V4 segment of the right vertebral artery, cervical spine MRI is consistent with severe cervical spondylosis but with only mild central canal stenosis Review of Systems Review of Systems: All systems reviewed & are unremarkable except as noted in HPI and below PMFSH Past Medical History Medical History Brain TIA Osteoarthritis Squamous cell carcinoma of forehead Surgical History Surgical History History of back surgery For spinal stenosis. History of elbow surgery (2009) Dr. Anne History of left knee replacement (2010) Dr. Flor History of right hip replacement (2014) Dr. Anne History of shoulder surgery right AC separation as a youth History of squamous cell carcinoma excision Forehead History of vasectomy Status post functional endoscopic sinus surgery Family History Family History Sibling Malignant neoplasm of prostate Sibling Diabetes mellitus Social History Social History Social History: Surrogate medical decision maker: Glenn Ramos, son. Code status: Full code. Smoking status: Never smoker Alcohol intake: never Substance use: never Substance use type: does not use Lack of Transportation: No Lack of Food: Never True Current Housing: I Have Housing Concerned About Future Housing: No Difficulty Paying Gas/Electric Bills: No Difficulty Paying for Meds: No Currently Unemployed: No Education: High School Diploma/GED Difficulty w/ Childcare or Family Care: No Living arrangements: with family Additional living arrangements comments: Lives with spouse in [place]. Enjoys playing piano at local nursing homes. Walks 1 to
--- NOTE | 2023-04-21 11:53 | PM.DS ---
DS: Admitting Diagnosis Discharge Date 04/21/2023 Admitting Diagnosis Brain TIA, occlusion of right vertebral artery DS: Discharge Diagnosis Discharge Diagnosis (1) Brain TIA: Code(s): G45.9 - Transient cerebral ischemic attack, unspecified Status: Acute (2) Occlusion of right vertebral artery: Code(s): I65.01 - Occlusion and stenosis of right vertebral artery Status: Acute DS: Summary Hospital Course Reason for hospitalization: This is an 82-year-old male patient who was admitted to the hospital due to transient numbness of the left side of the face the left arm and slight dizziness. Hospital Course: Patient admitted for TIA symptoms have resolved completely. Imaging shows occlusion of the right vertebral artery that is stable from prior findings. Patient is already on aspirin Plavix and atorvastatin. Patient was seen by Dr. Pope while in the hospital and all of his symptoms were resolved. Neurology stated that patient could be discharged home and he was ready to go immediately after being told he could leave. Status at Discharge Cognitive/behavioral status at discharge: Awake alert oriented and very pleasant Functional status at discharge: independent ambulation Overall status at discharge: patient is back to baseline Time Spent with Patient Time attestation: Total time spent providing and/or coordinating discharge services: 35 Time spent: Greater than 30 minutes Exam Narrative: Weight 81.3 kg BMI 27.3 Const: Other: No acute distress, well-developed well-nourished, appears younger than stated age HENMT: Other: Upper and lower dentures in place, mucous membranes are tacky, no oral pharyngeal erythema, no facial asymmetry Eyes: Other: Pupils are equal and reactive, extraocular movements intact Neck: Other: No JVD, no lymphadenopathy, trachea midline Resp: Other: Clear to auscultation bilaterally, no increased work of breathing Cardio: Other: Regular rate, irregular rhythm, 2+ bilateral radial pedal pulses, no murmur GI: Other: Soft, nontender, non distended, normoactive bowel sounds Skin: Other: No jaundice, no pallor Neuro: Other: Alert oriented x4, speech is clear, no facial asymmetry, patient has mild hearing loss, other cranial nerves are otherwise grossly intact, visual acuity not evaluated, [id number] intact, [id number] intact, no localizing neurologic deficits noted, sensation intact Extrem: Other: 5/5 strength bilateral lower extremities, sensation intact Psych: Other: Appropriate mood and affect, pleasant and cooperative DS: Data Data Completed and Pending Completed studies during hospitalization: Head CT, head neck CTA Labs on day of discharge: Labs from last 24 hours 04/20/23 04/20/23 04/20/23 21:28 20:01 19:19 WBC 5.7 RBC 3.55 L Hgb 11.7 L Hct 35.2 L MCV 99.2 MCH 33.0 MCHC 33.2 RDW 12.5 Plt Count 227 MPV 10.0 Immature Gran % (Auto) 0.4 Neut % (Auto) 50.6 Lymph % (Auto) 33.4 [place] % (Auto) 9.5 H Eos % (Auto) 5.4 H Baso % (Auto) 0.7 Lymph # (Auto) 1.90 [place] # (Auto) 0.5 Eos # (Auto) 0.3 Baso # (Auto) 0.0 Abs Immat Gran (auto) 0.02 Absolute Neuts (auto) 2.9 Absolute Nucleated RBC 0.0 Nucleated RBC % 0.0 PT 14.3 INR 1.1 APTT 31.9 Sodium 138 Potassium 3.7 Chloride 107 Carbon Dioxide 27 Anion Gap 4 L BUN 23 H Creatinine 0.80 Estim Creat Clear Calc Not Reportable Estimated GFR > 60 Glucose 120 H POC Capillary Glucose 99 Lactic Acid 1.4 Calcium 8.0 L Magnesium 2.1 Total Bilirubin 0.4 AST 38 ALT 20 Alkaline Phosphatase 55 Troponin I 0.018 Total Protein 6.0 L Albumin 3.4 L Urine Color Yellow Urine Appearance Clear Urine pH 6.0 Ur Specific [place] 1.077 H Urine Protein Negative Urine Glucose (UA) Neg
== END 2023-04-21 12:15 | disposition home or self-care (01) ==
LOC: ANHED 21:56 → ANH3MED 04-21 11:52
PROVIDERS: Admitting Provider Internal Medicine; Emergency Provider Emergency Medicine; PCP Internal Medicine; Visit Provider Hospitalist
DX: G45.9 Transient cerebral ischemic attack, unspecified (principal); R42 Dizziness and giddiness; G62.9 Polyneuropathy, unspecified; I49.3 Ventricular premature depolarization; M19.90 Unspecified osteoarthritis, unspecified site; Z85.828 Personal history of other malignant neoplasm of skin
CPT/HCPCS: 36415; 70450; 70496; 70498; 80053; 81003; 82948; 83605; 83735; 84484; 85025; 85610; 85730; 93005; 96360; 99285; A9270; G0378; J7030; Q9967

== ENCOUNTER 2023-11-02 08:57 | Outpatient (CLI) | payer MEDICARE, BC, SELFPAY ==
--- NOTE | ~2023-11-02 | US_ITS ---
EXAMINATION: US art doppler w press LE BI DATE: 11/02/2023 10:11 INDICATION: Peripheral vascular disease with ulcerations at the left second toe. TECHNIQUE: Segmental pressures and plethysmographic and Doppler waveforms of the brachial and lower e xtremity arteries were obtained. COMPARISON: None. FINDINGS: Right and left brachial artery pressures of 118 mm Hg and 130 mm Hg, respectively, are concordant (no rmal difference <= 30 mmHg). The right ankle-brachial index (BOSTON) is 1.06 (normal >= 0.9-1). The right great toe-brachial index (T BI) is 0.67 (normal >= 0.6-0.8). Arterial waveforms are triphasic at the right common femoral artery and biphasic at the more distal arteries with brisk systolic upstrokes throughout. The left BOSTON is 1.10. The left TBI is 0.75. Arterial waveforms are biphasic with brisk systolic upstr okes throughout the arteries of the left lower limb. IMPRESSION: 1. No significant arterial occlusive disease to the bilateral lower limbs with normal bilateral ABIs and low normal bilateral TBIs. Reviewed, dictated and finalized at location B.
== END 2023-11-02 08:58 | disposition home or self-care (01) ==
PROVIDERS: PCP Internal Medicine; Visit Provider Podiatrist Foot & Ankle Surgery
DX: I73.89 Other specified peripheral vascular diseases (principal)
CPT/HCPCS: 93923

== ENCOUNTER 2025-04-18 09:41 | Outpatient (CLI) | payer MEDICARE, BC, SELFPAY ==
--- NOTE | ~2025-04-18 | US_ITS ---
US thyroid INDICATION: Thyroid nodule TECHNIQUE: Real-time sonographic images of the thyroid gland were obtained. COMPARISON: Ultrasound dated 03/31/2023 FINDINGS: The right thyroid lobe measures 4.6 x 1.4 x 0.8 cm. The left thyroid lobe measures 5.5 x 2.1 x 2.5 cm. There is normal echotexture and echogenicity throughout the thyroid gland. There is a predominantly hypoechoic solid mass which is wider than tall, smoothly marginated without echogenic foci, TR 4. This mass measures 2.2 x 2.2 x 2 cm compared with 2.3 x 2.3 x 1.9 cm on prior examination. Normal vascular flow is present. IMPRESSION: 1. No significant change to 2.2 cm hypoechoic left thyroid mass, TR 4. Given the lack of interval change this is likely benign. Continued follow-up ultrasound in 12 months recommended. Reviewed, dictated and finalized at location O. IMPRESSION: 1. No significant change to 2.2 cm hypoechoic left thyroid mass, TR 4. Given t he lack of interval change this is likely benign. Continued follow-up ultrasoun d in 12 months recommended.
== END 2025-04-18 09:42 | disposition home or self-care (01) ==
LOC: MICIMG 09:43
PROVIDERS: PCP Family Medicine; Visit Provider Family Medicine
DX: E04.1 Nontoxic single thyroid nodule (principal)
CPT/HCPCS: 76536